=== PATIENT | female | born 1995 | race Caucasian/White ===

== ENCOUNTER 2023-08-31 18:43 | Inpatient (IN) ==
[2023-08-31 19:26] LABS: Basophils % (auto) 0.8 %; Eosinophils # (auto) 0.46 K/uL (0.00-0.50); Eosinophils % (auto) 3.7 %; Hematocrit (blood only) 43.3 % (37.0-47.0); Hemoglobin 14.3 g/dl (12.0-16.0); Immature Granulocytes # (auto) 0.05 K/uL (0.01-0.20); Immature Granulocytes % (auto) 0.4 %; Lymphocytes # (auto) 3.69 K/uL (1.20-3.40); Lymphocytes % (auto) 29.6 %; Mean Corpuscular Hemoglobin 29.7 pg (25.0-34.0); Mean Corpuscular Volume 89.8 fL (80.0-100.0); Mean Platelet Volume 9.9 fL (9.4-12.4); Monocytes % (auto) 5.6 %; Neutrophils # (auto) 7.47 K/uL (1.40-6.50); Neutrophils % (auto) 59.9 %; Platelet Count 394 K/uL (130-400); RDW Coefficient of Variation 12.2 % (11.5-14.5); RDW Standard Deviation 40.3 fL (36.4-46.3); Red Blood Count 4.82 M/uL (4.20-5.40); White Blood Count 12.47 K/ul (4.8-10.8)
[2023-08-31 19:48] LABS: Alanine Aminotransferase 22 U/L (7-52); Albumin Globulin Ratio 1.1 (0.9-2); Albumin Level 4.6 gm/dl (3.4-5.0); Alkaline Phosphatase 86 U/L (34-104); Anion Gap 8 (3-11); Aspartate Aminotransferase 20 U/L (13-39); BUN Creatinine Ratio 18.7 (10-20); Bilirubin,Total 0.3 mg/dl (0.2-1.0); Blood Urea Nitrogen 14 mg/dl (6-23); Calcium 9.8 mg/dl (8.6-10.3); Carbon Dioxide 26 mmol/L (21-32); Chloride 104 mmol/L (98-107); Est GFR (African American) 127.5 ml/min; Glucose 91 mg/dl (70-99(Fasting)); Potassium 3.9 mmol/L (3.5-5.1); Sodium 138 mmol/L (136-145); Total Protein 8.6 gm/dl (6.0-8.3)
[2023-08-31 19:54] LABS: Troponin I High Sensitivity < 2.3 pg/ml (0-14)
[2023-08-31 19:55] LABS: INR 0.9 (0.9-1.1); Partial Thromboplastin Ratio 0.9; Partial Thromboplastin Time 25 Seconds (21-31); Prothrombin Time 9.9 Seconds (9.0-12.0)
--- NOTE | 2023-08-31 20:44 | Emergency Department Note ---
Impression & Plan Right-sided chest pain, Pulmonary emboli, Pleuritic chest pain, SOB (shortness of breath) ED Provider Note NAME: DANNY SPIVEY AGE: 27 SEX: F : 1995 ARRIVES VIA: Walk-In INFORMANT: [Patient] ED PROVIDER(S): [Arley Barrera MD] CHIEF COMPLAINT: Short of breath HISTORY OF PRESENT ILLNESS: The patient is a 27-year-old female who presents to the ER with dyspnea. The patient states that she has pain on the right side of her chest. She has had pain now for 2 weeks. She feels as if she is short of breath from it. There has been no cough or congestion. No fever. No trauma to the chest wall. She has not suffered a previous DVT or PE. The patient states that she feels the pain is worse when she tries to sleep on her right side. She is trying to sleep with her arms up over her head. There have been no long trips by car plane or train. There is no family history of DVT or PE. The patient did recently start control. PMHx/PSHx/Social Hx: See Below PHYSICAL EXAM: GENERAL: Patient is in no acute distress. HEENT: No acute trauma, normocephalic atraumatic, mucous membranes moist, no nasal congestion. NECK: No stridor, no adenopathy, no meningismus, trachea is midline. LUNGS: Occasional crackles, no wheezing or respiratory distress. HEART: Without murmurs gallops or rubs, regular rate and rhythm. Chest: Nontender chest wall. ABDOMEN: Soft, nontender, no peritonitis. EXTREMITIES: No cyanosis, full range of motion of all the joints without pain or difficulty. NEUROLOGIC: Oriented x 3, no acute motor or sensory deficits, no focal weakness. SKIN: No jaundice, no diaphoresis. DIFFERENTIAL DIAGNOSIS: Bronchitis or pneumonia, musculoskeletal pain, pneumothorax, PE, among others. EMERGENCY DEPARTMENT PROCEDURES: MEDICAL DECISION MAKING: There is a mild leukocytosis, this could be consistent with infection or may be her pain. There was a normal hemoglobin and platelet count. No coagulopathy. No renal failure or significant electrolyte abnormality. No concerning liver enzyme elevation. ECG shows a normal sinus rhythm, no ischemia or dysrhythmia. Cardiac enzyme testing x 1 is not consistent with acute cardiac injury. Chest x-ray does not show mediastinal widening, pneumonia or pneumothorax. Chest CT shows multiple pulmonary emboli with some pulmonary infarcts. On exam, the patient did not have any reproducible chest pain. She was not hypoxic. She complained of pleuritic right-sided chest discomfort. Patient was found to have multiple pulmonary emboli. She will require a hospital stay and IV anticoagulation. I ordered for an IV heparin bolus and a heparin drip. I did speak with the patient about her findings, I did speak with case management, the on-call hospitalist has been consulted. Prior/Outside records/notes reviewed: None ECG per my interpretation: Indication was chest pain. The ECG shows a normal sinus rhythm with a rate of 77. There is no ST elevation, no PVCs. The QTc is 423. Continuous Cardiac Monitoring per my interpretation: An order was placed for continuous cardiac monitoring. The monitor shows a rate of 91 with normal sinus rhythm. Imaging/x-ray results per my interpretation: Chest x-ray does not show mediastinal widening, pneumonia or pneumothorax Chronic Medical/Social conditions affecting care: Care/Management discussed with: Case management, the on-call hospitalist. Level of care consideration(s): After review of the information above and other included data: --I believe the patient requires escalation of care to admission Critical Care Note: I have personally spent 44 minutes of critical care time in the direct management of this patient. This includes bedside care, interpretation of diagnostic studies, and testing, discussion with consultants, patient, and family members, and other required patient management activities. This 44 minutes is in excess of all separately billable procedures. DISPOSITION: Admission Past Med/Surg History Problem List SOB (shortness of breath) (Acute) Pleuritic chest pain (Acute) Pulmonary emboli (Acute) Right-sided chest pain (Acute) Medical History History of kidney stones Social History Smoking Status: Never smoker Preferred Language: Burkinan Feels Safe at Home: Yes Allergies Allergies Allergy/AdvReac Type Severity Reaction Status Date / Time No Known Allergies Allergy Unverified 08/31/23 19:37 Home Meds Home Medications Medication Instructions Recorded Confirmed etonogestrel 0.12 mg-ethinyl 1 vag ring vaginal UD 08/31/23 08/31/23 estradiol 0.015 mg/24 hr vaginal ring fluoxetine 20 mg capsule 20 mg PO QAM 08/31/23 08/31/23 prednisone 10 mg tablet 10 mg PO UD 08/31/23 08/31/23 quetiapine 50 mg tablet 50 mg PO HS 08/31/23 08/31/23 Results & Data (ED) Vital Signs Vital Signs - 24 hr 08/31/23 18:48 08/31/23 20:30 08/31/23 20:40 Temperature 36.5 C Temperature Source Temporal Artery Scan Pulse Rate 75 91 H Pulse Rate from SpO2 Sensor 91 H Respiratory Rate 16 15 16 Respiratory Effort / Characteristics Non-Labored Non-Labored Spontaneous Respiratory Depth Normal Normal Respiratory Pattern Regular Blood Pressure 146/94 H 134/96 Blood Pressure Mean 111 108 Pulse Oximetry 99 98 Oxygen Delivery Method Room Air Room Air Sepsis Recent Fever Within 48 Hours No Sepsis New/Unexplained Change in Mental Status No Sepsis Action Taken by Nursing No Action Required 08/31/23 20:40 08/31/23 20:40 Temperature Temperature Source Pulse Rate Pulse Rate from SpO2 Sensor Respiratory Rate Respiratory Effort / Characteristics Respiratory Depth Respiratory Pattern Blood Pressure Blood Pressure Mean Pulse Oximetry 96 96 Oxygen Delivery Method Room Air Room Air Sepsis Recent Fever Within 48 Hours Sepsis New/Unexplained Change in Mental Status Sepsis Action Taken by Care Home Medications Current Medication List: was personally reviewed by me Laboratory Data Attestation: I reviewed the patient's lab results. 08/31/23 18:50 08/31/23 18:50 Lab Results 08/31/23 Range/Units 18:50 WBC 12.47 H (4.8-10.8) K/ul RBC 4.82 (4.20-5.40) M/uL Hgb 14.3 (12.0-16.0) g/dl Hct 43.3 (37.0-47.0) % MCV 89.8 (80.0-100.0) fL MCH 29.7 (25.0-34.0) pg MCHC 33.0 (32.0-36.0) g/dL RDW Std Deviation 40.3 (36.4-46.3) fL RDW Coeff of Migue 12.2 (11.5-14.5) % Plt Count 394 (130-400) K/uL MPV 9.9 (9.4-12.4) fL Immature Gran % (Auto) 0.4 % Neut % (Auto) 59.9 % Lymph % (Auto) 29.6 % [place] % (Auto) 5.6 % Eos % (Auto) 3.7 % Baso % (Auto) 0.8 % Neut # (Auto) 7.47 H (1.40-6.50) K/uL Lymph # (Auto) 3.69 H (1.20-3.40) K/uL [place] # (Auto) 0.70 H (0.11-0.59) K/uL Eos # (Auto) 0.46 (0.00-0.50) K/uL Baso # (Auto) 0.10 (0.00-0.20) K/uL Immature Gran # (Auto) 0.05 (0.01-0.20) K/uL PT 9.9 (9.0-12.0) Seconds INR 0.9 (0.9-1.1) APTT 25 (21-31) Seconds PTT Ratio 0.9 Sodium 138 (136-145) mmol/L Potassium 3.9 (3.5-5.1) mmol/L Chloride 104 (98-107) mmol/L Carbon Dioxide 26 (21-32) mmol/L Anion Gap 8 (3-11) BUN 14 (6-23) mg/dl Creatinine 0.75 (0.6-1.2) mg/dl Est Cr Clr Drug Dosing 127.0 ml/min Est GFR ( Amer) 127.5 ml/min Est GFR (Non-Af Amer) 110.0 ml/min BUN/Creatinine Ratio 18.7 (10-20) Glucose 91 (70-99(Fasting)) mg/dl Calcium 9.8 (8.6-10.3) mg/dl Total Bilirubin 0.3 (0.2-1.0) mg/dl AST 20 (13-39) U/L ALT 22 (7-52) U/L Alkaline Phosphatase 86 (34-104) U/L Troponin I High Sens < 2.3 (0-14) pg/ml Total Protein 8.6 H (6.0-8.3) gm/dl Albumin 4.6 (3.4-5.0) gm/dl Globulin 4.0 (2.5-4.0) gm/dl Albumin/Globulin Ratio 1.1 (0.9-2) Administered Medications Discontinued Medications Ioversol (Optiray 320 125ml) 120 ml IV ONCE ONE Stop: 08/31/23 20:48 Last Admin: 08/31/23 20:48 Dose: 120 ml Documented By: GEP Imaging Data Radiologist's Impression: Chest X-Ray 08/31/23 18:50 XR chest 1V not portable CLINICAL HISTORY: Chest pain, nonspecific TECHNIQUE: Single frontal radiograph of the chest was obtained. Comparison: Comparison is made to chest radiograph 05/13/2018 FINDINGS: No lines and tubes are seen. The cardiomediastinal silhouette is normal. The lungs are clear. No evidence of pleural effusion or pneumothorax. IMPRESSION: No acute chest disease. ACT 112: Negative or not required by law. Electronically signed by: Franklin Miranda M.D. 08/31/2023 9:38 PM Chest CTA 08/31/23 20:39 CT angio chest PE protocol CLINICAL HISTORY: PE TECHNIQUE: Multidetector row helical CT of the chest was performed with angiographic protocol. Coronal and sagittal reformations were obtained. Coronal and sagittal MIPS were obtained from the axial data set and were submitted for review. Automated dose lowering techniques and/or adjustment according to patient size were utilized for this exam. CT DOSE: 740.36 mGy.cm Comparison: Comparison is made to chest radiograph 08/31/2023 FINDINGS: Lungs and pleura: Trace right pleural effusion is seen with groundglass nodules in the right lower lobe. Heart and pericardium: Heart size is normal. No pericardial effusion. No evidence of right heart strain. Vessels: There is a embolus of the right lower lobar artery and its branches as well as segmental branches of all other lobes. Mediastinum and meme: Unremarkable. Chest wall and lower neck: Unremarkable. Abdomen: Unremarkable. Bones: Unremarkable. IMPRESSION: Right lower lobar pulmonary emboli and additional emboli in segmental branches of the remaining lungs. Small peripheral pulmonary infarct is in the right lower lobe with likely reactive pleural effusion. ACT 112: Negative or not required by law. Electronically signed by: Franklin Miranda M.D. 08/31/2023 9:18 PM Discharge Plan Visit Data Chief Complaint: Shortness of Breath/Dyspnea Stated Complaint: REF BY DOC ED Provider: Feese,Arley J Discharge Problem: Right-sided chest pain, Pulmonary emboli, Pleuritic chest pain, SOB (shortness of breath) Patient Disposition: Admitted As Inpatient Condition: Fair Forms Stand Alone Forms: [facility] [employer] Prescriptions Prescriptions: No Action etonogestrel-ethinyl estradiol 0.12-0.015 mg/24 hr ring 1 vag ring VAGINAL UD prednisone 10 mg tablet 10 mg PO UD fluoxetine 20 mg capsule 20 mg PO QAM quetiapine 50 mg tablet 50 mg PO HS Referrals Referrals: Cassandra Sinclair MD [Primary Care Provider] - Discharge Problem: Pulmonary emboli Qualifiers: Pulmonary embolism type: unspecified Chronicity: acute Acute cor pulmonale presence: unspecified Qualified Code(s): I26.99 - Other pulmonary embolism without acute cor pulmonale
[2023-08-31] MEDS: OPTIRAY 320 125ml IV ONE (20:48)
--- NOTE | 2023-08-31 21:21 | CT Scan Report ---
CT angio chest PE protocol CLINICAL HISTORY: PE TECHNIQUE: Multidetector row helical CT of the chest was performed with angiographic protocol. Caceres l and sagittal reformations were obtained. Coronal and sagittal MIPS were obtained from the axial miguel a set and were submitted for review. Automated dose lowering techniques and/or adjustment according to patient size were utilized for this exam. CT DOSE: 740.36 mGy.cm Comparison: Comparison is made to chest radiograph 08/31/2023 FINDINGS: Lungs and pleura: Trace right pleural effusion is seen with groundglass nodules in the right lower lo be. Heart and pericardium: Heart size is normal. No pericardial effusion. No evidence of right heart stra in. Vessels: There is a embolus of the right lower lobar artery and its branches as well as segmental bra nches of all other lobes. Mediastinum and meme: Unremarkable. Chest wall and lower neck: Unremarkable. Abdomen: Unremarkable. Bones: Unremarkable. IMPRESSION: Right lower lobar pulmonary emboli and additional emboli in segmental branches of the remaining lungs . Small peripheral pulmonary infarct is in the right lower lobe with likely reactive pleural effusion . ACT 112: Negative or not required by law. Electronically signed by: Franklin Miranda M.D. 08/31/2023 9:18 PM
--- NOTE | 2023-08-31 21:39 | XRay Report ---
XR chest 1V not portable CLINICAL HISTORY: Chest pain, nonspecific TECHNIQUE: Single frontal radiograph of the chest was obtained. Comparison: Comparison is made to chest radiograph 05/13/2018 FINDINGS: No lines and tubes are seen. The cardiomediastinal silhouette is normal. The lungs are clear. No evid ence of pleural effusion or pneumothorax. IMPRESSION: No acute chest disease. ACT 112: Negative or not required by law. Electronically signed by: Franklin Miranda M.D. 08/31/2023 9:38 PM
[2023-08-31] MEDS: HEPARIN SOD (PORCINE) 1000 UNIT/ML IV ONE (22:24)
[2023-08-31] MEDS: HEPARIN SODIUM/DEXTROSE 25,000 UNITS/500 ML BAG IV SCH (22:25)
[2023-08-31] MEDS: Heparin IV Adult Wt-Based Standard w/ INITIAL Bolus Protocol IV STA (23:43)
--- NOTE | 2023-09-01 00:02 | History & Physical Report ---
Date of Service August 31, 2023 Assessment & Plan (1) Pulmonary emboli: Plan: 27-year-old female with past medical history significant for hepatic steatosis, history of nephrolithiasis, mood disorder, anxiety state, recurrent depression comes because of chest pain going on for last 2 weeks and has dyspnea on exertion starting today and found to have acute PE. Patient states since last 2 weeks she is having chest pains more with inhalation on the right side but today walking short distance made her short of breath which prompted her come to the hospital. Denies any fevers. No cough. She had some dizziness. No headache. Vision is okay. No runny nose or sore throat. No nausea. No abdominal pain. Normal bowel and bladder movements. Hemodynamics are okay. Patient states She had control vaginal ring placed about 3 months ago. No history of blood clots in the past. No family history of blood clots as per patient. Denies smoking. Denies leg swelling Multiple pulmonary emboli right lower lobar pulm emboli and additional emboli in subsegmental branch of the remaining lungs with 2 peripheral pulmonary infarcts in the right lower lobe and likely reactive pleural effusion on the CAT scan possible cause control vaginal ring on IV heparin will follow lower EXTR Dopplers and echo hypercoagulable workup as outpatient close monitor history of mood disorder anxiety recurrent depression continue home meds DVT prophylaxis IV heparin disposition med/telemetry full code History of Present Illness Chief Complaint: acute PE Primary Care Provider: Cassandra Sinclair MD 27-year-old female with past medical history significant for hepatic steatosis, history of nephrolithiasis, mood disorder, anxiety state, recurrent depression comes because of chest pain going on for last 2 weeks and has dyspnea on exertion starting today and found to have acute PE. Patient states since last 2 weeks she is having chest pains more with inhalation on the right side but today walking short distance made her short of breath which prompted her come to the hospital. Denies any fevers. No cough. She had some dizziness. No headache. Vision is okay. No runny nose or sore throat. No nausea. No abdominal pain. Normal bowel and bladder movements. Hemodynamics are okay. Patient states She had control vaginal ring placed about 3 months ago. No history of blood clots in the past. No family history of blood clots as per patient. Denies smoking. Denies leg swelling past medical history. As mentioned above past surgical history. Carpal tunnel surgery. Dental surgery. Social history.No smoking. No alcohol use. No drug use. family history. Mother has thyroid disorder. Maternal grandmother had lung cancer. Dementia. Allergies Allergy/AdvReac Type Severity Reaction Status Date / Time No Known Allergies Allergy Unverified 08/31/23 19:37 Home Medications Medication Instructions Recorded Confirmed Type etonogestrel 0.12 mg-ethinyl 1 vag ring vaginal UD 08/31/23 08/31/23 History estradiol 0.015 mg/24 hr vaginal ring fluoxetine 20 mg capsule 20 mg PO QAM 08/31/23 08/31/23 History prednisone 10 mg tablet 10 mg PO UD 08/31/23 08/31/23 History quetiapine 50 mg tablet 50 mg PO HS 08/31/23 08/31/23 History Past Med/Surg History Problem List SOB (shortness of breath) (Acute) Pleuritic chest pain (Acute) Pulmonary emboli (Acute) Right-sided chest pain (Acute) Medical History History of kidney stones Social History Smoking Status: Never smoker Hx Alcohol Use: Yes Hx Substance Use: No Preferred Language: Georgian Communication Ability: Effective Twist Tester Required: No Beliefs That Will Affect Care: None Current Living Situation: Alone Feels Safe at Home: Yes Safety Concerns: Feels Safe At This Time Review of Systems Review of Systems: All systems reviewed & are unremarkable except as noted in HPI & below Physical Exam Physical Exam: General- Not in distress. Head- atraumatic Eyes- PERRL. ENT- oropharynx clear Neck- supple, no JVD. Lungs- clear to auscultation no wheezing or crackles. Heart- regular rate and rhythm; no murmur, no gallop. Abdomen- normal bowel sounds, soft, nontender, no distension. Extremities- no pretibial edema, no erythema seen Neuro- alert, oriented PERRL, no facial palsy; no dysarthria; Results & Data Results & Data Vital Signs (Past 12 Hours) Vital Signs Temp Pulse Resp BP Pulse Ox O2 Del Method 08/31/23 22:00 16 96 Room Air 08/31/23 20:40 96 Room Air 08/31/23 20:40 96 Room Air 08/31/23 20:40 16 08/31/23 20:30 91 H 15 134/96 98 Room Air 08/31/23 20:25 87 08/31/23 18:48 36.5 C 75 16 146/94 H 99 Room Air Diagnostic Findings Laboratory Results WBC 12.47 K/ul (4.8-10.8) H 08/31/23 18:50 RBC 4.82 M/uL (4.20-5.40) 08/31/23 18:50 Hgb 14.3 g/dl (12.0-16.0) 08/31/23 18:50 Hct 43.3 % (37.0-47.0) 08/31/23 18:50 MCV 89.8 fL (80.0-100.0) 08/31/23 18:50 MCH 29.7 pg (25.0-34.0) 08/31/23 18:50 MCHC 33.0 g/dL (32.0-36.0) 08/31/23 18:50 RDW Std Deviation 40.3 fL (36.4-46.3) 08/31/23 18:50 RDW Coeff of Migue 12.2 % (11.5-14.5) 08/31/23 18:50 Plt Count 394 K/uL (130-400) 08/31/23 18:50 MPV 9.9 fL (9.4-12.4) 08/31/23 18:50 Immature Gran % (Auto) 0.4 % 08/31/23 18:50 Neut % (Auto) 59.9 % 08/31/23 18:50 Lymph % (Auto) 29.6 % 08/31/23 18:50 [place] % (Auto) 5.6 % 08/31/23 18:50 Eos % (Auto) 3.7 % 08/31/23 18:50 Baso % (Auto) 0.8 % 08/31/23 18:50 Neut # (Auto) 7.47 K/uL (1.40-6.50) H 08/31/23 18:50 Lymph # (Auto) 3.69 K/uL (1.20-3.40) H 08/31/23 18:50 [place] # (Auto) 0.70 K/uL (0.11-0.59) H 08/31/23 18:50 Eos # (Auto) 0.46 K/uL (0.00-0.50) 08/31/23 18:50 Baso # (Auto) 0.10 K/uL (0.00-0.20) 08/31/23 18:50 Immature Gran # (Auto) 0.05 K/uL (0.01-0.20) 08/31/23 18:50 PT 9.9 Seconds (9.0-12.0) 08/31/23 18:50 INR 0.9 (0.9-1.1) 08/31/23 18:50 APTT 25 Seconds (21-31) 08/31/23 18:50 PTT Ratio 0.9 08/31/23 18:50 Sodium 138 mmol/L (136-145) 08/31/23 18:50 Potassium 3.9 mmol/L (3.5-5.1) 08/31/23 18:50 Chloride 104 mmol/L (98-107) 08/31/23 18:50 Carbon Dioxide 26 mmol/L (21-32) 08/31/23 18:50 Anion Gap 8 (3-11) 08/31/23 18:50 BUN 14 mg/dl (6-23) 08/31/23 18:50 Creatinine 0.75 mg/dl (0.6-1.2) 08/31/23 18:50 Est Cr Clr Drug Dosing 127.0 ml/min 08/31/23 18:50 Est GFR ( Amer) 127.5 ml/min 08/31/23 18:50 Est GFR (Non-Af Amer) 110.0 ml/min 08/31/23 18:50 BUN/Creatinine Ratio 18.7 (10-20) 08/31/23 18:50 Glucose 91 mg/dl (70-99(Fasting)) 08/31/23 18:50 Calcium 9.8 mg/dl (8.6-10.3) 08/31/23 18:50 Total Bilirubin 0.3 mg/dl (0.2-1.0) 08/31/23 18:50 AST 20 U/L (13-39) 08/31/23 18:50 ALT 22 U/L (7-52) 08/31/23 18:50 Alkaline Phosphatase 86 U/L (34-104) 08/31/23 18:50 Troponin I High Sens < 2.3 pg/ml (0-14) 08/31/23 18:50 Total Protein 8.6 gm/dl (6.0-8.3) H 08/31/23 18:50 Albumin 4.6 gm/dl (3.4-5.0) 08/31/23 18:50 Globulin 4.0 gm/dl (2.5-4.0) 08/31/23 18:50 Albumin/Globulin Ratio 1.1 (0.9-2) 08/31/23 18:50 Impressions Chest X-Ray 08/31/23 18:50 XR chest 1V not portable CLINICAL HISTORY: Chest pain, nonspecific TECHNIQUE: Single frontal radiograph of the chest was obtained. Comparison: Comparison is made to chest radiograph 05/13/2018 FINDINGS: No lines and tubes are seen. The cardiomediastinal silhouette is normal. The lungs are clear. No evidence of pleural effusion or pneumothorax. IMPRESSION: No acute chest disease. ACT 112: Negative or not required by law. Electronically signed by: Franklin Miranda M.D. 08/31/2023 9:38 PM Chest CTA 08/31/23 20:39 CT angio chest PE protocol CLINICAL HISTORY: PE TECHNIQUE: Multidetector row helical CT of the chest was performed with angiographic protocol. Coronal and sagittal reformations were obtained. Coronal and sagittal MIPS were obtained from the axial data set and were submitted for review. Automated dose lowering techniques and/or adjustment according to patient size were utilized for this exam. CT DOSE: 740.36 mGy.cm Comparison: Comparison is made to chest radiograph 08/31/2023 FINDINGS: Lungs and pleura: Trace right pleural effusion is seen with groundglass nodules in the right lower lobe. Heart and pericardium: Heart size is normal. No pericardial effusion. No evidence of right heart strain. Vessels: There is a embolus of the right lower lobar artery and its branches as well as segmental branches of all other lobes. Mediastinum and meme: Unremarkable. Chest wall and lower neck: Unremarkable. Abdomen: Unremarkable. Bones: Unremarkable. IMPRESSION: Right lower lobar pulmonary emboli and additional emboli in segmental branches of the remaining lungs. Small peripheral pulmonary infarct is in the right lower lobe with likely reactive pleural effusion. ACT 112: Negative or not required by law. Electronically signed by: Franklin Miranda M.D. 08/31/2023 9:18 PM ECG Additional Comments: ECG. Normal sinus rhythm with a rate of 77. No acute ST changes seen. Code Status & VTE Plan VTE Prophylaxis Plan VTE Prophylaxis will be ordered: Yes (1) Pulmonary emboli Acute cor pulmonale presence: unspecified Chronicity: acute Pulmonary embolism type: unspecified Qualified Code(s): I26.99 - Other pulmonary embolism without acute cor pulmonale
[2023-09-01] MEDS: traMADol HCL 50 MG TABLET PO PRN (00:45)
[2023-09-01] MEDS ORDERED: POLYETHYLENE (MIRALAX) 17 GM PACK PO PRN (01:16)
[2023-09-01] MEDS ORDERED: ACETAMINOPHEN 325 MG TAB PO PRN (01:16)
[2023-09-01] MEDS: HYDROmorphone INJ 0.5 MG/0.5 ML SYR IV PRN (02:58)
[2023-09-01] MEDS: SODIUM CHLORIDE 0.9% 1,000 ML IV SCH (03:01)
[2023-09-01 04:42] LABS: Basophils # (auto) 0.08 K/uL (0.00-0.20); Basophils % (auto) 0.6 %; Eosinophils # (auto) 0.43 K/uL (0.00-0.50); Eosinophils % (auto) 3.3 %; Hematocrit (blood only) 39.6 % (37.0-47.0); Hemoglobin 13.3 g/dl (12.0-16.0); Immature Granulocytes # (auto) 0.09 K/uL (0.01-0.20); Immature Granulocytes % (auto) 0.7 %; Lymphocytes # (auto) 4.44 K/uL (1.20-3.40); Lymphocytes % (auto) 34.5 %; Mean Corpuscular Hemoglobin 29.8 pg (25.0-34.0); Mean Corpuscular Hgb Conc 33.6 g/dL (32.0-36.0); Mean Corpuscular Volume 88.6 fL (80.0-100.0); Mean Platelet Volume 9.5 fL (9.4-12.4); Monocytes # (auto) 0.81 K/uL (0.11-0.59); Monocytes % (auto) 6.3 %; Neutrophils # (auto) 7.02 K/uL (1.40-6.50); Neutrophils % (auto) 54.6 %; Platelet Count 342 K/uL (130-400); RDW Coefficient of Variation 12.2 % (11.5-14.5); RDW Standard Deviation 39.8 fL (36.4-46.3); Red Blood Count 4.47 M/uL (4.20-5.40); White Blood Count 12.87 K/ul (4.8-10.8)
[2023-09-01 04:55] LABS: BUN Creatinine Ratio 16.9 (10-20); Creatinine Clr Calc Pharmacy 146.5 ml/min; Est GFR (Non-African American) 122.5 ml/min; Magnesium 2.2 mg/dl (1.7-2.4); Potassium 3.4 mmol/L (3.5-5.1)
[2023-09-01 05:05] LABS: ANTI-Xa, UFH(UnfractionatedHep 0.22 IU/ml (0.3-0.7)
--- NOTE | 2023-09-01 06:31 | Ultrasound Report ---
ULTRASOUND BILATERAL LOWER EXTREMITY VENOUS CLINICAL HISTORY: Pulmonary embolus. COMPARISON STUDY: No priors. TECHNIQUE: Real-time, grayscale, and color Doppler sonography of the deep veins of the right and left lower extremity was performed from the inguinal crease to the calf. Compression and augmentation wer e utilized. FINDINGS: There is no sonographic evidence of deep venous thrombosis identified in the right or left lower extremity. The common femoral, superficial femoral, and popliteal veins are patent and normally compressible bilaterally. The greater saphenous vein and the profunda femoris vein at the junction w ith the common femoral vein are clear in both legs. The visualized calf veins are patent bilaterally. IMPRESSION: There is no sonographic evidence of deep venous thrombosis identified in the right or lef t lower extremity. ACT 112: Negative or not required by law. Electronically signed by: Arley Galeana M.D. 09/01/2023 6:29 AM
--- NOTE | 2023-09-01 07:14 | Electrocardiogram Report ---
Test Reason : Blood Pressure : / mmHG Vent. Rate : 077 BPM Atrial Rate : 077 BPM P-R Int : 118 ms QRS Dur : 088 ms QT Int : 374 ms P-R-T Axes : 009 019 021 degrees QTc Int : 423 ms Normal sinus rhythm Normal ECG No previous ECGs available Confirmed by Alberto Reddy ([id number]) on 09/01/2023 7:14:15 AM Referred By: Emory Lindsay Confirmed By:Braxton Reddy
[2023-09-01] MEDS: FLUoxetine HCL 20 MG CAP PO SCH (08:18)
[2023-09-01] MEDS: POTASSIUM CHLORIDE CRTAB 20 MEQ TABCR PO STA (09:34)
[2023-09-01 11:39] LABS: ANTI-Xa, UFH(UnfractionatedHep 0.21 IU/ml (0.3-0.7)
[2023-09-01] MEDS: ONDANSETRON INJ 2 MG/ML 2 ML VIAL ONE (13:24)
[2023-09-01] MEDS: ONDANSETRON INJ 2 MG/ML 2 ML VIAL IV SCH (14:00)
--- NOTE | 2023-09-01 14:35 | Hospitalist Progress Note ---
Date of Service September 01, 2023 Assessment & Plan (1) Pulmonary emboli: Plan: 27-year-old female with past medical history significant for hepatic steatosis, history of nephrolithiasis, mood disorder, anxiety state, recurrent depression comes because of chest pain going on for last 2 weeks and has dyspnea on exertion starting today and found to have acute PE. Patient states since last 2 weeks she is having chest pains more with inhalation on the right side but today walking short distance made her short of breath which prompted her come to the hospital. Denies any fevers. No cough. She had some dizziness. No headache. Vision is okay. No runny nose or sore throat. No nausea. No abdominal pain. Normal bowel and bladder movements. Hemodynamics are okay. Patient states She had control vaginal ring placed about 3 months ago. No history of blood clots in the past. No family history of blood clots as per patient. Denies smoking. Denies leg swelling Multiple pulmonary emboli Right lower lobar pulm emboli and additional emboli in subsegmental branch of the remaining lungs with 2 peripheral pulmonary infarcts in the right lower lobe and likely reactive pleural effusion on the CAT scan Possible cause control vaginal ring On IV heparin Ultrasound of the legs have been negative for any DVTs Hypercoagulable workup as outpatient Clinically little better Discussed about oral anticoagulation Prefers to have Eliquis versus Xarelto Will start the medication from tomorrow Awaiting echo Advised to discontinue current contraceptive method History of mood disorder anxiety recurrent depression continue home meds DVT prophylaxis IV heparin disposition med/telemetry full code Admission and Anticipated Discharge Date Admission Date: August 31, 2023 Subjective 09/01/2023 The patient was seen and examined in emergency room in presence of the mother Has been complaining of chest pain with shortness of breath for the last 2 weeks No cough and/or hemoptysis No calf swelling or calf pain Review of Systems Review of Systems: All systems reviewed and are unremarkable except as noted below Physical Exam Physical Exam: Lying in bed comfortably Constitutional: well developed, well nourished and + ill appearing Eyes: PERRL, conjunctivae normal, anicteric sclerae ENMT: external ear and nose normal, oropharynx normal Neck: trachea midline, no thyromegaly Respiratory: no respiratory distress Auscultation: + crackles; + lungs not clear to auscultation Cardiovascular: Rate/Rhythm: regular rate and regular rhythm; not tachycardic Heart Sounds: normal S1 and normal S2; no murmur Extremities: no edema Gastrointestinal (Abdomen): Inspection/Auscultation: normal bowel sounds; abdomen not distended Percussion/Palpation: abdomen soft; abdomen nontender Musculoskeletal: No acute arthritis involving any of the joints Neurologic: normal touch/pain/proprioception and moves all extremities; no focal motor deficits Psychiatric: A+Ox3, euthymic affect Lymphatic: no cervical or axillary lymphadenopathy Results & Data Results & Data Vital Signs (Past 12 Hours) Vital Signs Temp Pulse Pulse Resp BP BP Pulse Ox 09/01/23 14:11 64 18 124/94 99 09/01/23 14:00 75 22 95 09/01/23 13:39 85 25 H 95 09/01/23 13:00 87 25 H 95 09/01/23 13:00 129/90 09/01/23 12:33 68 22 95 09/01/23 12:15 90 21 96 09/01/23 11:33 85 28 H 124/77 96 09/01/23 11:09 92 H 25 H 88 L 09/01/23 10:43 74 18 136/88 94 09/01/23 09:30 137/89 09/01/23 07:11 66 09/01/23 07:09 63 18 125/75 95 09/01/23 06:00 71 16 124/79 95 09/01/23 05:00 82 16 126/73 95 09/01/23 04:30 78 25 H 96 09/01/23 03:08 36.7 C 83 18 137/99 99 09/01/23 03:00 91 H 20 137/99 98 O2 Del Method 09/01/23 14:11 Room Air 09/01/23 14:00 09/01/23 13:39 09/01/23 13:00 09/01/23 13:00 09/01/23 12:33 09/01/23 12:15 09/01/23 11:33 09/01/23 11:09 09/01/23 10:43 Room Air 09/01/23 09:30 09/01/23 07:11 09/01/23 07:09 Room Air 09/01/23 06:00 Room Air 09/01/23 05:00 Room Air 09/01/23 04:30 09/01/23 03:08 Room Air 09/01/23 03:00 Laboratory Results Short CBC 08/31/23 09/01/23 Range/Units 18:50 04:25 WBC 12.47 H 12.87 H (4.8-10.8) K/ul Hgb 14.3 13.3 (12.0-16.0) g/dl Hct 43.3 39.6 (37.0-47.0) % Plt Count 394 342 (130-400) K/uL BMP 08/31/23 09/01/23 18:50 04:25 Sodium 138 136 Potassium 3.9 3.4 L Chloride 104 104 Carbon Dioxide 26 25 BUN 14 11 Creatinine 0.75 0.65 Glucose 91 99 Calcium 9.8 9.0 Liver Function 08/31/23 Range/Units 18:50 Total Bilirubin 0.3 (0.2-1.0) mg/dl AST 20 (13-39) U/L ALT 22 (7-52) U/L Alkaline Phosphatase 86 (34-104) U/L Albumin 4.6 (3.4-5.0) gm/dl Medications Administered Current Inpatient Medications Acetaminophen (Acetaminophen 325 Mg Tab) 650 mg PO Q6H PRN PRN Reason: Pain or Fever Stop: 10/01/23 01:15 Fluoxetine HCl (Fluoxetine Hcl 20 Mg Cap) [facility] Stop: 10/01/23 08:59 Last Admin: 09/01/23 08:18 Dose: 20 mg Hydromorphone HCl (Hydromorphone Inj 0.5 Mg/0.5 Ml Syr) 0.5 mg IV Q4H PRN PRN Reason: Severe Pain (Scale 7, 8, 9,10) Stop: 09/15/23 02:53 Last Admin: 09/01/23 12:06 Dose: 0.5 mg Heparin Sodium/Dextrose (Heparin Sodium/Dextrose) 25,000 units in 500 mls @ 27 mls/hr IV .[id number] [facility]; Protocol Stop: 09/30/23 22:14 Last Titration: 09/01/23 12:13 Dose: 1,350 units/hr, 27 mls/hr Ondansetron HCl (Ondansetron Inj 2 Mg/Ml 2 Ml Vial) 4 mg IV Q6H [facility] Stop: 10/01/23 13:44 Last Admin: 09/01/23 14:00 Dose: Not Given Polyethylene Glycol (Polyethylene (Miralax) 17 Gm Pack) 17 gm PO DAILY PRN PRN Reason: Constipation Stop: 10/01/23 01:15 Quetiapine Fumarate (Quetiapine Fumarate 25 Mg Tablet) 50 mg PO HS LUZ MARIA Stop: 10/01/23 20:59 Tramadol HCl (Tramadol Hcl 50 Mg Tablet) 50 mg PO Q6H PRN PRN Reason: Mod-Sev Pain (Scale 4-10) Stop: 10/01/23 00:29 Last Admin: 09/01/23 10:39 Dose: 50 mg (1) Pulmonary emboli Acute cor pulmonale presence: unspecified Chronicity: acute Pulmonary embolism type: unspecified Qualified Code(s): I26.99 - Other pulmonary embolism without acute cor pulmonale
--- OUTSIDE RECORDS SUMMARY | 2023-09-01 15:36 | External Medical Summary ---
Author Name Unknown Address Unknown Organization [id number]:LABORATORY [facility] - [address] [facility] [address] Laboratory Report Ordering Provider Test Date Status SHIRA ENG 06/25/2023 07:46:49 Final Observation Date Value Abnormality Reference (Units ) Status SYNC LEUKOCYTES IN BLOOD BY AUTOMATED COUNT 06/25/2023 07:46:49 11.41 Above high normal 4.00-10.80 (K/uL) Final Segs 06/25/2023 07:46:49 50.9 40.0-75.0 (%) Final Lymphs % 06/25/2023 07:46:49 37.8 18.0-42.0 (%) Final Monos 06/25/2023 07:46:49 4.6 1.0-11.0 (%) Final Eosinophils 06/25/2023 07:46:49 5.5 0.0-6.0 (%) Final Basos 06/25/2023 07:46:49 0.9 0.0-2.0 (%) Final Immature Granulocyte, Percent 06/25/2023 07:46:49 0.3 0.0-2.0 (%) Final Absolute Segs 06/25/2023 07:46:49 5.81 1.80-7.70 (K/uL) Final Lymphs, absolute 06/25/2023 07:46:49 4.31 1.00-4.80 (K/ul) Final Monos, Abs 06/25/2023 07:46:49 0.53 0.00-1.10 (K/uL) Final Eos, Abs 06/25/2023 07:46:49 0.63 0.00-0.70 (K/uL) Final Basos, Abs 06/25/2023 07:46:49 0.10 0.00-0.20 (K/uL) Final Immature Granulocytes, Number 06/25/2023 07:46:49 0.03 0.00-0.20 (K/uL) Final Performing Location [facility]ORY [facility] - [address] [facility] [address]
--- OUTSIDE RECORDS SUMMARY | 2023-09-01 15:36 | External Medical Summary ---
Author Name Unknown Address Unknown Organization [id number]:LABORATORY [facility] [place] - [address] [facility] [address] Laboratory Report Ordering Provider Test Date Status SHIRA ENG 06/25/2023 07:46:49 Final Observation Date Value Abnormality Reference (Units ) Status HbA1C 06/25/2023 07:46:49 5.0 4.0-5.6 (% ) Final The use of HbA1c to monitor glycemic status is based on normal hemoglobin and HbA composition. This test should not be used in patients with abnormal hemoglobin that affects the half life of the red blood cell or the in vivo glycation rates. Glucose, estimated average 06/25/2023 07:46:49 97 <126 (mg/dL) Final Performing Location [facility] - [address] [facility] [address]
--- OUTSIDE RECORDS SUMMARY | 2023-09-01 15:36 | External Medical Summary | Summary of Care ---
Author Name Unknown Organization [facility] Address [address] [place] [address] Phone [phone] Care Team Providers Care Tin Roofer Name Role Phone Cassandra Sinclair MD Primary Care Provider Reason for Visit * Reason Comments Weight Management The pt stated she wo uld like to discuss weight management/weight loss * Evaluate & Treat - Unlimited Visits (Within 10 days (routine)) - Authorized Specialty Diagnoses / Procedures Referred By Contact Referred To Contact GI NUTRITION/IM / Gastroenterology Diagnoses Mood disorder (HCC) Monie Pierson CRNP [address] [place] [address] Referral ID Status Reason Start Date Expiration Date Visits Requested Visits Authorized [id number] Authorized Specialty Services Required 06/18/[phone] Encounter Details Date Type Department Care Team (Latest Contact Info) Description 07/06/2023 8:40 AM EDT Nutrition Services Nutrition & Weight Management, [facility] [address] [address] Shonna Siu RDN [address] [address] Mood disorder (HCC)*; Class 1 obesity due to excess calories without serious comorbidity with body mass index (BMI) of 33.0 to 33.9 in adult Allergies No known active allergiesdocumented as of this encounter (statuses as of 07/06/2023) Medications Medication Sig Dispensed Refills Start Date End Date Status Tamsulosin HCl 0.4 MG Oral Capsule (Flomax) TAKE 1 CAPSULE IN THE MORNING 90 Capsule 3 11/30/2022 Active Etonogestrel-Ethinyl Estradiol 0.12-0.015 MG/24HR Vaginal Ring (NuvaRing)Indications: Encounter for initial prescription of vaginal ring hormonal contraceptive Put 1 ring in vagina. Leave in for 3 weeks. Remove for one week. Then start over with new ring. 1 Each 12 05/18/2023 Active FLUoxetine HCl 20 MG Oral Capsule (PROzac) Take 1 Capsule by mouth in the morning. 90 Capsule 1 06/18/2023 Active QUEtiapine Fumarate 50 MG Oral Tablet (SEROquel) Take 1 Tablet by mouth at bedtime. 90 Tablet 1 06/18/2023 Active documented as of this encounter (statuses as of 07/06/2023) Active Problems Problem Noted Date Diagnosed Date Moderate episode of recurrent major depressive d isorder 05/18/2023 Ureteral stone 08/29/2022 Recurrent major depressive disorder 12/30/2020 Anxiety state 05/30/2019 Mood disorder 05/30/2019 Hepatic steatosis 05/15/2018 Overview: On CT from 05/13/18- normal liver function testing (05/13/18) Nephrolithiasis 05/15/2018 Overview: Right sided, seen on CT scan documented as of this encounter (statuses as of 07/06/2023) Resolved Problems Problem Noted Date Diagnosed Date Resolved Date Chlamydia infection 01/16/2022 02/01/20 23 Food insecurity 01/31/2021 02/09/2022 Overview: Per [facility] Protocol HEATHER (generalized anxiety disorder) 07/31/2018 05/30/2019 Moderate episode of recurren t major depressive disorder 07/31/2018 05/30/2019 Deliberate self-cutting 01/26/2017 05/0 10/2018 documented as of this encounter (statuses as of 07/06/2023) Immunizations Name Administration Dates Next Due COVID-19 mRNA, LNP-s, No Pre serve, 2-Dose Series (Pfizer) 12/30/2020,12/09/2020 DTaP Dipth/Tet/Acell Pertussis (Infanrix), Peds 06/03/2001,01/08/1998,04/07/1997,1996,1996 HPV Vaccine, 9-Valent 09/07/2017,05/02/2017,09/2016 Hepatitis B, 0-19 yrs 07/07/1997,1996,10/1996 IPV - Polio Virus Vaccine (Inact) 2001,04/07/1997,02/03/1997,1996 MMR - Measles/Mumps/Rubella Vaccine 06/03/2001,0 10/06/1997 Seasonal Influenza Virus Vac cine, Unspecified Formulation 12/22/2020,12/18/2019,01/16/2018 Seasonal Influenza, PF, 6 M & above, IM , (FluLaval or Fluzone) 02/07/2023,01/16/2022 Seasonal Influenza, Quad, Na anuel (Flumist) 12/22/2020 Seasonal Influenza, Split, I IV3, With Preserve, Inj 01/02/2017 TDAP (age 10 and older)(Boostrix) 12/01/2016 Varicella Vaccine (Chicken Pox) 09/24/2008,10/06 documented as of this encounter Social History Tobacco Use Types Packs/Day Years Used Date Smoking Tobacco: Never Smokeless Tobacco: Never Alcohol Use Standard Drinks/Week Comments No 0 (1 standard drink = 0.6 oz pur e alcohol) PHQ-2 Answer Date Recorded PHQ Adult Total Score 2 05/18/2023 Hunger Vital Sign Answer Date Recorded Within the past 12 months, y ou worried that your food would run out before you got the money to buy more. Never true 02/13/20 23 Within the past 12 months, t he food you bought just didn't last and you didn't have money to get more. Never true 02/12/2023 Sex and Gender Information Value Date Recorded Sex Assigned at Female 07/31/2018 4:12 PM EDT Gender Identity Female 07/31/2018 4:12 PM EDT Sexual Orientation Straight 07/31/2018 4: 12 PM EDT Job Start Date Occupation Industry Not on file Not on file Not on file documented as of this encounter Last Filed Vital Signs Vital Sign Reading Time Taken Comments Blood Pressure 114/82 07/06/2023 8:39 AM EDT Pulse 96 07/06/2023 8:39 AM EDT Temperature 36.6 C (97.9 F) 07/06/2023 8:39 AM ED T Respiratory Rate - - Oxygen Saturation 98% 07/06/2023 8:39 AM EDT Inhaled Oxygen Concentration - - Weight 90.4 kg (199 lb 6.4 oz) 07/06/2023 8:39 A M EDT Height - - Body Mass Index 33.18 01/31/2023 8:03 AM EST documented in this encounter Progress Notes * Shonna Siu RDN - 07/06/2023 8:40 AM EDT NUTRITION & WEIGHT MANAGEMENT CONSULT NOTE [employer] Name: Lashaun Guzman Location: NUTRITION & WEIGHT MANAGEMENT, [facility] Date: 07/06/2023 Time: 7:58 AM Patient was identified at visit by name and date. Patient was seen [id number] in the clinic. NUTRITION ASSESSMENT Referring Provider: Cassandra Sinclair MD SUBJECTIVE: 27 year old female with fatty liver, depression/anxiety who has been following in clinic since June 2022 and weighed 199 lbs at that time. 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 Lives alone. Pt does not like to cook. PRIOR NUTRITION COUNSELING: No prior counseling CHALLENGES/SUCCESS TO PREVIOUS WEIGHT LOSS ATTEMPTS: SUPPLEMENTS: None PERTINENT MEDICATIONS: Quetiapine FOOD ALLERGY/INTOLERANCE ISSUES: No 07/06/23 -Initial RD visit. 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, can eat at mom's house to have dinner, will have spaghetti and take home leftovers Snacks: Drinks: [employer] coffee Franca iced latte, water 22 oz x1-1.5 times a day Alcohol: Can have 2-4 drinks a week, michelob ultra or mixed drinks Restaurant meals: several times a week DIET RECALL INDICATES: Excess intake of sweetened beverages Poor meal distribution Frequent restaurant meals Inadequate fiber intake Inadequate fruit and vegetable intake Inadequate fluid intake Inadequate protein intake PHYSICAL ACTIVITY: ANTHROPOMETRICS: Height: 65" Initial weight: 199 lbs UBW: ~185 lbs Current weight: 199 lbs Weight changes: Wt Readings from Last 10 Encounters: 07/06/23 90.4 kg (199 lb 6.4 oz) 05/18/23 92.1 kg (203 lb) 02/07/23 87.7 kg (193 lb 6.4 oz) 01/31/23 87 kg (191 lb 12.8 oz) 12/13/22 87.3 kg (192 lb 8 oz) 08/23/22 86.2 kg (190 lb) 07/19/22 87.3 kg (192 lb 6.4 oz) 01/16/22 84.3 kg (185 lb 12.8 oz) 01/16/22 85.4 kg (188 lb 3.2 oz) 12/30/21 85.7 kg (189 lb) MNT: Calorie Controlled Diet, Low Fat Diet, High Fiber Diet, Good Nutrition, Nutrient Dense Diet, 60-80 grams Protein Patient is interested in the following treatment options for obesity: medical management. LABS:Pertinent lab studies have been reviewed. Latest Reference Range & Units 06/25/23 07:46 Triglycerides <=174 mg/dL 183 (H) Cholesterol <200 mg/dL 227 (H) Non-HDL Cholesterol <=159 mg/dL 164 (H) HDL Cholesterol >49 mg/dL 63 LDL Cholesterol <=129 mg/dL 127 Latest Reference Range & Units 05/18/23 16:18 AST 10 - 35 U/L 25 ALT 10 - 35 U/L 43 (H) Latest Reference Range & Units 06/25/23 07:46 Hemoglobin A1C 4.0 - 5.6 % 5.0 NUTRITION PRESCRIPTION: Sonia Wiley 1644 x 1.2 activity factor = 1972 Kcals --> 1500 Kcals for weight loss Adjusted [place] Body Weight: 144 lbs/ 65 kg Protein: 1.0-1.2 gm protein/AIBW kg (65 kg) = 65-78 gm protein/day Fluid: 25-30 mL/AIBW kg (65 kg) = 9327-2568 mL/day, 55-66 oz KNOWLEDGE ASSESSMENT: limited knowledge BARRIERS TO LEARNING: None SPECIAL EDUCATION NEEDS: None NUTRITION DIAGNOSIS: Overweight/obesity related to excessive energy intake and physical inactivity as evidenced by BMI of 33.18 kg/m, Class I Obesity. NUTRITION INTERVENTION INSTRUCTED PT ON THESE NUTRITION HANDOUTS: New pt Folder, On the Go Protein Snacks, how to Increasefruits and veggies PATIENT GOALS: -No meal skipping. -Protein: have at least 60 g a day. Have 3 palm sized portions of protein at each meal (20 g) -Increase fruits and vegetables: aim for 4-6 full cup servings daily. Start with having at least 1 c of fruit and/or vegetables at each meal. Make sure half of your plate is filled with fruits/vegetables. -Incorporate foods higher in omega-3 fatty acids like salmon, walnuts, albacore tuna, dark leafy greens -Use a smaller plate when eating to help control portion sizes. -Limit/avoid sugar sweetened beverages. -Allow more indulgent/higher calorie foods and beverages on occasion. -Be as active as possible. Aim for 30 minutes of intentional activity 4-6 days a week. EXPECTED OUTCOMES: Demonstrated interest in learning. Expect compliance with diet recommendations. PLAN: 2-3 m 40 min visit Shonna Siu RDN documented in this encounter Nursing Notes * Chris Chino LPN - 07/06/2023 8:41 AM EDT Chief Complaint Patient presents with Weight Management The pt stated she would like to discuss weight management/weight loss Neck 13.5 inches Waist 43.5inches documented in this encounter Plan of Treatment Upcoming Encounters Date Type Department Care Team (Late st Contact Info) Description 08/13/2023 2:30 PM EDT Office Visit Psychiatry, [facility] [address] [address] Pierson, BENNIE Amezquita [address] [address] 09/05/2023 12:00 PM EDT Office Visit Family Practice [facility] [address] [address] Cassandra Sinclair MD [address] [place] [address] 09/26/2023 8:40 AM EDT Nutrition Services Nutrition & Weight Management, [facility] [address] [address] Shonan Siu RDN [address] [place] [address] 06/25/2024 1:00 PM EDT Office Visit Gynecology/Obstetrics [facility] [address] [address] Antonella Brady CRNP [address] [place] [address] Scheduled Referrals Name Type Priority Associated Diagnoses Orde r Schedule GI NUTRITION REFERRAL OP Referral Within 10 days (routine) Mood disorder (HCC) Ordered: 06/18/2023 Health Maintenance Due Date Last Done Comments Pap Smear 08/20/2023 08/19/2020, 03/15/2018 DTaP,Tdap,and Td Vaccines (7 - Td or Tdap) 12/01/2026 12/01/2016, 06/03/2001, 01/08/1998, Additional history exists Hepatitis B Completed 07/07/1997, 10/1996, 1996 GARDASIL-HPV IMMUNIZATION SERIES Completed 09/07/2017, 05/02/2017, 03/01/2017 COVID-19 Vaccine Discontinued 12/30/2020, 12/09/2020 Influenza Vaccine (FLU shot) Completed 02/07/2023, 01/16/2022, 12/22/2020, Additional history exists Gonorrhea / Chlamydia Screen Discontinued 05/18/2023, 12/13/2022, 02/08/2022, Additional history exists MENINGOCOCCAL (MENACTRA/MENVEO) Aged Out No longer eligible based on patient's age to complete this topic Pneumococcal Vaccine: Pediatrics (0 to 5 Years) and At-Risk Patients (6 to 64 Years) Aged Out No longer eligible based on patient's age to complete this topic documented as of this encounter Medical Devices Not on filedocumented as of this encounter Visit Diagnoses Diagnosis Mood disorder (HCC)- Primary Unspecified episodic mood disorder Class 1 obesity due to excess calories without serious comorbidity with body mass index (BMI) of 33.0 to 33.9 in adult documented in this encounter Care Teams Tin Roofer Relationship Specialty Start Date End Date Cassandra Sinclair MD [address] [address] PCP - General Internal Medicine 02/10/21 documented as of this encounter
--- OUTSIDE RECORDS SUMMARY | 2023-09-01 15:36 | External Medical Summary ---
Author Name Unknown Address Unknown Organization K01:[facility] - [address] [facility] [id number] Laboratory Report Ordering Provider Test Date Status SHIRA ENG 06/25/2023 07:46:49 Final 12 hour fasting Observation Date Value Abnormality Reference (Units ) Status Triglyceride 06/25/2023 07:46:49 183 Above high normal <=174 (mg/dL) Final Triglyceride Reference Range s (mg/dL):
<150 Acceptable
150-174 Borderline high
175-499 High
>=500 Very high Cholesterol 06/25/2023 07:46:49 227 Above high normal <200 (mg/dL) Final Total Cholesterol Reference Ranges (mg/dL):
<200 Desirable
200-239 Borderline high
>=240 High HDL 06/25/2023 07:46:49 63 >49 (mg/dL ) Final HDL Cholesterol Reference Ra nges (mg/dL):
>=60 High (Desirable)
<50 Low (Undesirable) For Females
<40 Low (Undesirable) For Males NON-HDL CHOLESTEROL 06/25/2023 07:46:49 164 Above high normal <=159 (mg/dL) Final Non-HDL Cholesterol Referenc e Range (mg/dL):
<100 Target level for high risk ASCVD patient
<130 Optimal for general population
130-159 Near optimal for general population
160-189 Borderline High
190-219 High
>=220 Very High LDL, (calculated) 06/25/2023 07:46:49 127 <= 129 (mg/dL) Final LDL Cholesterol Reference Ra nges (mg/dL):
<70 Target level for high risk ASCVD patient
<100 Optimal for general population
100-129 Near optimal for general population
130-159 Borderline high
160-189 High
>=190 Very high Performing Location LABOR[facility] - [address] [facility] [address]
--- OUTSIDE RECORDS SUMMARY | 2023-09-01 15:36 | External Medical Summary | Summary of Care ---
Author Name Unknown Organization [facility] Address [address] [place] [address] Phone [phone] Care Team Providers Care Linen Room Attendant Name Role Phone Cassandra Sinclair MD Primary Care Provider Encounter Details Date Type Department Care Team (Late st Contact Info) Description 08/06/2023 Orders Only Outcomes Research Department [address] [place] [address] Shruthi Rudolph CHRA MyCode Research Other*[id number] Allergies No known active allergiesdocumented as of this encounter (statuses as of 08/06/2023) Medications Medication Sig Dispensed Refills Start Date [...] as of this encounter (statuses as of 08/06/2023) Active Problems Problem Noted Date Diagnosed Date Moderate episode of recurrent major depressive d isorder 05/18/2023 Ureteral stone 08/29/2022 Recurrent major depressive disorder 12/30/2020 Anxiety state 05/30/2019 Mood disorder 05/30/2019 Hepatic steatosis 05/15/2018 Overview: On CT from 05/13/18- normal liver function testing (05/13/18) Nephrolithiasis 05/15/2018 Overview: Right sided, seen on CT scan documented as of this encounter (statuses as of 08/06/2023) Resolved Problems Problem Noted Date Diagnosed Date Resolved Date Chlamydia infection 01/16/2022 02/01/20 Food insecurity 01/31/2021 02/09/2022 Overview: Per [facility] Protocol HEATHER (generalized anxiety disorder) 07/31/2018 05/30/2019 Moderate episode of recurren t major depressive disorder 07/31/2018 05/30/2019 Deliberate self-cutting 01/26/2017 050 10/2018 documented as of this encounter (statuses as of 08/06/2023) Immunizations Name Administration Dates Next Due COVID-19 mRNA, LNP-s, No Pre serve, 2-Dose Series ([employer]) 12/30/2020,12/09/2020 DTaP Dipth/Tet/Acell Pertussis (Infanrix), Peds 06/03/2001,01/08/1998,04/07/1997,1996,1996 HPV Vaccine, 9-Valent 09/07/2017,05/02/2017,120 09/2016 Hepatitis B, 0-19 yrs 07/07/1997,1996,10/1996 IPV - [...] on file documented as of this encounter Plan of Treatment Upcoming Encounters Date Type Department Care Team (Late st Contact Info) Description 08/13/2023 2:30 PM EDT Office Visit Psychiatry, [facility] [address] [place] [address] Monie Pierson CRNP [address] [place] [address] 09/19/2023 1:40 PM EDT Office Visit Family Practice [facility] [address] [address] Cassandra Sinclair MD [address] [address] 09/26/2023 8:40 AM EDT Nutrition Services Nutrition & Weight Management, [facility] [address] [place] [address] Shonna Siu RDN [address] [place] [address] 06/25/2024 1:00 PM EDT Office Visit Gynecology/Obstetrics [facility] [address] [place] [address] Antonella Brady CRNP [address] [place] [address] Scheduled Orders Name Type Priority Associated Diagnoses Orde r Schedule MYCODE SUBSEQUENT ADULT Lab Routine MyCode Research Other*[id number] Every 6 Months for 2 Occurrences starting 08/06/2023 until 08/25/2024 Health Maintenance Due Date Last Done Comments [...] as of this encounter Visit Diagnoses Diagnosis MyCode Research Other*[id number] documented in this encounter Care Teams Linen Room Attendant Relationship Specialty Start Date End Date Cassandra Sinclair MD [address] [place] [address] PCP - General Internal Medicine 02/10/21 documented as of this encounter
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
--- OUTSIDE RECORDS SUMMARY | 2023-09-01 15:37 | External Medical Summary ---
Author Name Unknown Address Unknown Organization K01:[facility] - [address] [place] [address] Laboratory Report Ordering Provider Test Date Status SUSAN CARMONA 05/18/2023 16:18:41 Final Observation Date Value Abnormality Reference (Units ) Status Hep C Ab 05/18/2023 16:18:41 Negative Negative Final Further HCV quantitative efrain ting not performed per protocol. Performing Location [facility] - [address] [place] [address]
--- OUTSIDE RECORDS SUMMARY | 2023-09-01 15:37 | External Medical Summary | Summary of Care ---
Author Name Unknown Organization [facility] Address [address] [place] [address] Phone [phone] Care Team Providers Care Track Service Worker Name Role Phone Cassandra Sinclair MD Primary Care Provider Reason for Referral * Evaluate & Treat - Unlimited Visits (Within 10 days (routine)) - Authorized Specialty Diagnoses / Procedures Referred By Contact Referred To Contact GI NUTRITION/IM / Gastroenterology Diagnoses Mood disorder (HCC) Monie Pierson CRNP [address] [place] [address] Referral ID Status Reason Start Date Expiration Date Visits Requested Visits Authorized [id number] Authorized Specialty Services Required 06/18/2023 [id number] Question Answer Referral Priority Within 10 days (routine) Where should this appointment be scheduled? [facility] For what condition is the patient being seen? Other Comments Weight management due to weight increase related to psychotropic medication treatment Reason for Visit * Reason Comments NEW PATIENT Evaluation Psychiatric * Evaluate & Treat - Unlimited Visits (Within 10 days (routine)) - Authorized Specialty Diagnoses / Procedures Referred By Contac t Referred To Contact Psychiatry Diagnoses Moderate episode of recurrent major depressive disorder (HCC) Cassandra Sinclair MD [address] [facility] [place] [address] Referral ID Status Reason Start Date Expiration Date Visits Requested Visits Authorized [id number] Authorized Specialty Services Required 3 [phone] Encounter Details Date Type Department Care Team (Late st Contact Info) Description 06/18/2023 9:00 AM EDT Office Visit Psychiatry, [facility] [address] [place] [address] Pierson, BENNIE Amezquita [address] [place] [address] Mood disorder (HCC)* Allergies No known active allergiesdocumented as of this encounter (statuses as of 06/22/2023) Medications Medication Sig Dispensed Refills Start Date End Date Status Tamsulosin HCl 0.4 MG Oral Capsule (Flomax) TAKE 1 CAPSULE IN THE MORNING 90 Capsule 3 11/30/2022 Active Etonogestrel-Ethiny l Estradiol 0.12-0.015 MG/24HR Vaginal Ring (NuvaRing)Indicatio ns:Encounter for initial prescription of vaginal ring hormonal [...] at bedtime. 90 Tablet 1 06/18/2023 Active FLUoxetine HCl 20 MG Oral Capsule (PROzac)Indications :Moderate episode of recurrent major depressive disorder (HCC) Take 1 Capsule by mouth in the morning. 90 Capsule 1 02/27/2023 06/18/2023 Discontinue d(Refill) QUEtiapine Fumarate 50 MG Oral Tablet (SEROquel)Indicatio ns:Moderate episode of recurrent major depressive disorder (HCC) Take 1 Tablet by mouth at bedtime. 90 Tablet 0 03/28/2023 06/18/2023 Discontinue d(Refill) documented as of this encounter (statuses as of 06/22/2023) Active Problems Problem Noted Date Diagnosed Date Moderate episode of recurrent major depressive d isorder 05/18/2023 Ureteral stone 08/29/2022 Recurrent major depressive disorder 12/30/2020 Anxiety state 05/30/2019 Mood disorder 05/30/2019 Hepatic steatosis 05/15/2018 Overview: On CT from 05/13/18- normal liver function testing (05/13/18) Nephrolithiasis 05/15/2018 Overview: Right sided, seen on CT scan documented as of this encounter (statuses as of 06/22/2023) Resolved Problems Problem Noted Date Diagnosed Date Resolved Date Chlamydia infection 01/16/2022 02/01/20 23 Food insecurity 01/31/2021 02/09/2022 Overview: Per [facility] Protocol HEATHER (generalized anxiety disorder) 07/31/2018 05/30/2019 Moderate episode of recurren t major depressive disorder 07/31/2018 05/30/2019 Deliberate self-cutting 01/26/201710/2018 documented as of this encounter (statuses as of 06/22/2023) Immunizations Name Administration Dates Next Due COVID-19 mRNA, LNP-s, No Pre serve, 2-Dose Series (MRI Interventions) 12/30/2020,12/09/2020 DTaP Dipth/Tet/Acell Pertussis (Infanrix), Peds 06/03/2001,01/08/1998,04/07/1997,1996,1996 HPV Vaccine, 9-Valent 09/07/2017,05/02/2017,1209/2016 Hepatitis B, 0-19 yrs 07/07/1997,1996,10/1996 IPV - [...] Progress Notes * Monie Pierson CRNP - 06/18/2023 9:15 AM EDT OUTPATIENT BEHAVIORAL HEALTH INITIAL EVALUATION Patient location: CLINIC. I was in the same facility as the patient. After connecting through [employer], patient was verified with two unique identifiers. Patient (or authorized legal sales representative leather goods)was then informed that this was a Telemedicine visit and being conducted confidentially over securelines. My office door was closed. No one else was in the room with me. Patient acknowledged consentand understanding of privacy and security of the Telemedicine visit, and gave permission to have a telemedicine presenter stay in the room in order to assist with the history and to conduct the exam as needed. I informed the patient that I have reviewed their record in [employer] and presented the opportunity for them to ask any questions regarding the visit today. The patient agreed to participate. Provider determined this patient has capacity to receive and benefit from telehealth services. Timing assessment: This is the initial onset of the assessed illness Start Time: 907 Stop Time: 1010 Referral Source: PCP, Dr. Sinclair History of Present Illness: Lashaun Guzman is a 27 year old person that presents for depression andmood swings. Per referral note 02/07/2023 by PCP: When last seen in June, Luis Miguel Foley was doing well. 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 Assessment by Dr. Mendez: Lashaun Thomas presents to acute care clinic due to [...] recommending any changes today. 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 Return in 2 months Diagnosis: ICD-10-CM 1. Mood disorder (HCC) F39 Mood disorder Rule out bipolar disorder mixed episode Plan: Medications: continue seroquel 50 mg QHS and Prozac 20 mg AM Therapy: continue as scheduled Community Resources: none at this time Lab tests/Medical: A1C, Lipids, CBC Return in: 2 months Treatment options and recommendations/interventions reviewed. Patient and/or caregiver verbalize understanding and agrees to plan with explanation of risks/benefits, aware of how to contact clinic with questions. Information about current meds reviewed/provided /offered. Provider reviewed risks/benefits/side effects and potential complications. Recommended to not change meds/dosage without medical advise. documented in this encounter Plan of Treatment Upcoming Encounters Date Type Department Care Team (Late st Contact Info) Description 08/13/2023 2:30 PM EDT Office Visit [facility], [facility] [address] [place] [address] Monie Pierson CRNP [address] [facility] [place] [address] 09/05/2023 12:00 PM EDT Office Visit Family Practice [facility] [address] [place] [address] Cassandra Sinclair MD [address] [place] [address] 06/25/2024 1:00 PM EDT Office Visit Gynecology/Obstetrics [facility] [address] [place] [address] Antonella Brady CRNP [address] [place] [address] Scheduled Orders Name Type Priority Associated Diagnoses Orde r Schedule CBC WITH WBC DIFFERENTIAL Lab Routine Mood disorder (HCC) Every 3 Months for 3 Occurrences starting 06/18/2023 until 06/17/2024 LIPID PANEL WITH DIRECT LDL IF TG IS HIGH Lab Routine Mood disorder (HCC) Every 3 Months for 3 Occurrences starting 06/18/2023 until 06/17/2024 HEMOGLOBIN A1C Lab Routine Mood disorder (HCC) Every 3 Months for 3 Occurrences starting 06/18/2023 until 06/17/2024 Scheduled Referrals Name Type Priority Associated Diagnoses Orde r Schedule GI NUTRITION REFERRAL OP Referral Within 10 days (routine) Mood disorder (HCC) Ordered: 06/18/2023 Health Maintenance Due Date Last Done Comments Pap Smear 08/20/2023 08/19/2020, 03/15/2018 Depression Screening 05/18/2024 05/18/2023 DTaP,Tdap,and Td Vaccines (7 - Td or [...] disorder documented in this encounter Care Teams Track Service Worker Relationship Specialty Start Date End Date Cassandra Sinclair MD [address] [place] [address] PCP - General Internal Medicine 02/10/21 documented as of this encounter
--- OUTSIDE RECORDS SUMMARY | 2023-09-01 15:37 | External Medical Summary | Summary of Care ---
Author Name Unknown Organization [facility] Address [address] [place] [address] Phone [phone] Care Team Providers Care Secretary Office Clerk Name Role Phone Cassandra Sinclair MD Primary Care Provider Reason for Visit * Reason Comments Outpatient Testing Encounter Details Date Type Department Care Team (Late st Contact Info) Description 05/18/2023 4:50 PM EST Laboratory Laboratory, [facility] [address] [place] [id number] [facility] [address] [place] [address] Urinary frequency; Screening examination for STD (sexually transmitted disease); Routine screening for STI (sexually transmitted infection) Allergies No known active allergiesdocumented as of this encounter (statuses as of 05/18/2023) Medications Medication Sig Dispensed Refills Start Date End Date Status Tamsulosin HCl 0.4 MG Oral Capsule (Flomax) TAKE 1 CAPSULE IN THE MORNING 90 Capsule 3 11/30/2022 Active FLUoxetine HCl 20 MG Oral Capsule (PROzac)Indications:Mo derate episode of recurrent major depressive disorder (HCC) Take 1 Capsule by mouth in the morning. 90 Capsule 1 02/27/2023 Active QUEtiapine Fumarate 50 MG Oral Tablet (SEROquel)Indications: Moderate episode of recurrent major depressive disorder (HCC) Take 1 Tablet by mouth at bedtime. 90 Tablet 0 03/28/2023 Active Etonogestrel-Ethinyl Estradiol 0.12-0.015 MG/24HR Vaginal Ring (NuvaRing)Indications: Encounter for initial prescription of vaginal ring hormonal contraceptive Put 1 ring in vagina. Leave in for 3 weeks. Remove for one week. Then start over with new ring. 1 Each 12 05/18/2023 Active documented as of this encounter (statuses as of 05/18/2023) Active Problems Problem Noted Date Diagnosed Date Moderate episode of recurrent major depressive d isorder 05/18/2023 Ureteral stone 08/29/2022 Recurrent major depressive disorder 12/30/2020 Anxiety state 05/30/2019 Mood disorder 05/30/2019 Hepatic steatosis 05/15/2018 Overview: On CT from 05/13/18- normal liver function testing (05/13/18) Nephrolithiasis 05/15/2018 Overview: Right sided, seen on CT scan documented as of this encounter (statuses as of 05/18/2023) Resolved Problems Problem Noted Date Diagnosed Date Resolved Date Chlamydia infection 01/16/2022 02/01/20 Food insecurity 01/31/2021 02/09/2022 Overview: Per [facility] Protocol HEATHER (generalized anxiety disorder) 07/31/2018 05/30/2019 Moderate episode of recurren t major depressive disorder 07/31/2018 05/30/2019 Deliberate self-cutting 01/26/201710/2018 documented as of this encounter (statuses as of 05/18/2023) Immunizations Name Administration Dates Next Due COVID-19 mRNA, LNP-s, No Pre serve, 2-Dose Series (Pfizer) 12/30/2020,12/09/2020 DTaP Dipth/Tet/Acell Pertussis (Infanrix), Peds 06/03/2001,01/08/1998,04/07/1997,1996,1996 HPV Vaccine, 9-Valent 09/07/2017,05/02/2017,1209/2016 Hepatitis B, 0-19 yrs 07/07/1997,1996,0710/1996 IPV - Polio Virus Vaccine (Inact) 2001,04/07/1997,02/03/1997,1996 [...] Answer Date Recorded PHQ Adult Total Score 22 02/07/2023 Hunger Vital Sign Answer Date Recorded Within [...] EDT Office Visit Psychiatry, [facility] [address] [place] [address] Pierson, BENNIE Amezquita [address] [place] [address] 07/25/2023 2:40 PM EDT Office Visit Family Practice [facility] [address] [place] [address] Cassandra Sinclair MD [address] [place] [address] Pending Results Name Type Priority Associated Diagnoses Date /Time COMPREHENSIVE METABOLIC PANEL Lab Routine Urinary frequency 05/18/2023 4:18 PM EST SYPHILIS ANTIBODY SCREEN WITH REFLEX TO RPR Lab Routine Screening examination for STD (sexually transmitted disease) 05/18/2023 4:18 PM EST HIV ANTIGEN & ANTIBODY SCREEN W/ CONFIRMATION Lab Routine Screening examination for STD (sexually transmitted disease) 05/18/2023 4:18 PM EST HEPATITIS C ANTIBODY SCREEN WITH PROGRESSION TO HEPATITIS C RNA QUANTITATIVE Lab Routine Screening examination for STD (sexually transmitted disease) 05/18/2023 4:18 PM EST SYPHILIS ANTIBODY SCREEN Lab Routine Screening examination for STD (sexually transmitted disease) 05/18/2023 4:18 PM EST HEPATITIS C ANTIBODY Lab Routine Screening examination for STD (sexually transmitted disease) 05/18/2023 4:18 PM EST HEPATITIS C RNA ADD ON Lab Routine Screening examination for STD (sexually transmitted disease) 05/18/2023 4:18 PM EST CHLAMYDIA TRACHOMATIS AND NEISSERIA GONORRHOEAE, AMPLIFIED PROBE Lab Routine Routine screening for STI (sexually transmitted infection) 05/18/2023 4:20 PM EST Health Maintenance Due Date Last Done Comments Pap Smear 08/20/2023 08/19/2020, 03/15/2018 Depression Screening 05/18/2024 05/18/2023 DTaP,Tdap,and Td Vaccines (7 - Td or Tdap) 12/01/2026 12/01/2016, 06/03/2001, 01/08/1998, Additional history exists Hepatitis B Completed 07/07/1997, 10/1996, 1996 GARDASIL-HPV IMMUNIZATION SERIES Completed 09/07/2017, 05/02/2017, 03/01/2017 COVID-19 Vaccine Discontinued 12/30/2020, 12/09/2020 Gonorrhea / Chlamydia Screen Discontinued 12/13/2022, 02/08/2022, 01/09/2022, Additional history exists Influenza Vaccine (FLU shot) Completed 02/07/2023, 01/16/2022, 12/22/2020, Additional history exists MENINGOCOCCAL (MENACTRA/MENVEO) Aged Out No longer eligible based on patient's age to complete this topic Pneumococcal Vaccine: Pediatrics (0 to 5 Years) and At-Risk Patients (6 to 64 Years) Aged Out No longer eligible based on patient's age to complete this topic documented as of this encounter Medical Devices Not on filedocumented as of this encounter Visit Diagnoses Diagnosis Urinary frequency Screening examination for STD (sexually transmitted disease) Screening examination for venereal disease Routine screening for STI (sexually transmitted infection) Screening examination for venereal disease documented in this encounter Care Teams Secretary Office Clerk Relationship Specialty Start Date End Date Cassandra Sinclair MD [address] [place] [address] PCP - General Internal Medicine 02/10/21 documented as of this encounter
--- OUTSIDE RECORDS SUMMARY | 2023-09-01 15:37 | External Medical Summary | Summary of Care ---
Author Name Unknown Organization [facility] Address [address] [place] [address] Phone [phone] Care Team Providers Care Bull Ladle Tender Name Role Phone Cassandra Sinclair MD Primary Care Provider Reason for Visit * Reason Comments Follow Up Feeling much better on Seroquel but gaining weight on it. Encounter Details Date Type Department Care Team (Latest Contact Info) Description 05/18/2023 3:20 PM EST Office Visit Family Practice [facility] [address] [facility] [place] [address] Cassandra Sinclair MD [address] [facility] [place] [address] Moderate episode of recurrent major depressive disorder (HCC)*; Routine screening for STI (sexually transmitted infection); Encounter for initial prescription of vaginal ring hormonal contraceptive Allergies No known active allergiesdocumented as of [...] 02/01/20 Food insecurity 01/31/2021 02/09/2022 Overview: Per [facility] Protocol HEATHER (generalized anxiety disorder) 07/31/2018 05/30/2019 Moderate episode of recurren t major depressive disorder 07/31/2018 05/30/2019 Deliberate self-cutting 01/26/2017 05/0 10/2018 documented as of this encounter (statuses as of 05/18/2023) Immunizations Name Administration Dates Next Due COVID-19 mRNA, LNP-s, No Pre serve, 2-Dose Series ([employer]) 12/30/2020,12/09/2020 DTaP Dipth/Tet/Acell Pertussis (Infanrix), Peds 06/03/2001,01/08/1998,04/07/1997,1996,1996 [...] Date Smoking Tobacco: Never Smokeless Tobacco: Never Tobacco Cessation:Counseling Given: Not Answered Alcohol Use Standard Drinks/Week Comments No 0 [...] Sign Reading Time Taken Comments Blood Pressure 120/86 05/18/2023 3:31 PM EST Pulse 87 05/18/2023 3:31 PM EST Temperature 36.4 C (97.6 F) 05/18/2023 3:31 PM ES T Respiratory Rate 16 05/18/2023 3:31 PM EST Oxygen Saturation 98% 05/18/2023 3:31 PM EST Inhaled Oxygen Concentration - - Weight 92.1 kg (203 lb) 05/18/2023 3:31 PM EST Height - - Body Mass Index 33.78 01/31/2023 8:03 AM EST documented in this encounter Progress Notes * Cassandra Sinclair MD - 05/18/2023 3:44 PM EST Images from the original note were not included. History of Present Illness Lashaun Guzman is a 27 year old female that presents for Follow Up (Feeling much better on Seroquelbut gaining weight on it.) Seroquel has overall been very positive. Mind is much calmer, able to reflect on things, impulsivity is much decreased. Sleeping at night, awake during the day. 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 Ended up keeping the 3rd dog she impulsively purchased, it is going okay. Continues in individual therapy with Carmen Pitts, shehas been happy with her progress. Only downside to Seroquel has been weight gain. New male partner, sexually active for one-month, not using condoms. Wonders if she should be worried about fertility since she has not gotten yet. Past use of Depo-Provera, last injection spring 2021. Four partners since last HIV test. Last chlamydia November 2022. Amenable to restarting contraception. Hesitant to start Depo given prolonged returned to fertility and possible weight gain. Current medications and allergies reviewed. Past medical history and problem list reviewed. Physical Exam Vitals: 05/18/23 1531 Temp: 36.4 C (97.6 F) Pulse: 87 Resp: 16 SpO2: 98% BP: 120/86 BP Readings from Last 3 Encounters: 05/18/23 120/86 02/07/23 118/84 01/31/23 110/80 Wt Readings from Last 3 Encounters: 05/18/23 92.1 kg (203 lb) 02/07/23 87.7 kg (193 lb 6.4 oz) 01/31/23 87 kg (191 lb 12.8 oz) Physical Exam Vitals and nursing note reviewed. Constitutional: Appearance: Normal appearance. She is not ill-appearing. Skin: Coloration: Skin is not jaundiced or pale. Neurological: Mental Status: She is alert. Psychiatric: Mood and Affect: Mood normal. Behavior: Behavior normal. Comments: Much more calm. I have reviewed the following results: Chlamydia/gonorrhea, HIV Assessment and Plan Moderate episode of recurrent major depressive disorder (HCC) Continue with Seroquel and Prozac 20 for now. Has visit to establish care with psychiatric nurse practitioner in just a few weeks. Might be smart to just continue with current regimen and allow her to build healthy, steady new habits. Can also discuss with her other mood stabilizing options that may not come with as much weight gain. Routine screening for STI (sexually transmitted infection) Strongly encouraged condom use - CHLAMYDIA TRACHOMATIS AND NEISSERIA GONORRHOEAE, AMPLIFIED PROBE; Future - HIV ANTIGEN & ANTIBODY SCREEN W/ CONFIRMATION; Future - SYPHILIS ANTIBODY SCREEN WITH REFLEX TO RPR; Future Encounter for initial prescription of vaginal ring hormonal contraceptive Strongly encouraged effective contraception as she does not wish to be right now. Reviewedhow to use the NuvaRing. - Etonogestrel-Ethinyl Estradiol 0.12-0.015 MG/24HR Vaginal Ring (NuvaRing); Put 1 ring in vagina. Leave in for 3 weeks. Remove for one week. Then start over with new ring. Wrap-Up Follow Up: Return in 4 months (on 09/16/2023) for Labs Today, Return with Yahir. | For: Labs Today, Return with Yahir Time: I spent a total of 20-29 minutes (exact time 28 mins) on the date of service in preparation, delivery, and documentation of the care provided to Lashaun Guzman excluding any time spent in the performance of separately billed services. documented in this encounter Plan of Treatment Upcoming Encounters Date Type Department Care Team (Late st Contact Info) Description 06/18/2023 9:00 AM EDT Office Visit Psychiatry, [facility] [address] [place] [address] Monie Pierson CRNP [address] [place] [address] 07/25/2023 2:40 PM EDT Office Visit Family Practice [facility] [address] [place] [address] Cassandra Sinclair MD [address] [place] [address] Pending Results Name Type Priority Associated Diagnoses Date /Time CHLAMYDIA TRACHOMATIS AND NEISSERIA GONORRHOEAE, AMPLIFIED PROBE Lab Routine Routine screening for STI (sexually transmitted infection) 05/18/2023 4:20 PM EST Scheduled Orders Name Type Priority Associated Diagnoses Orde r Schedule CHLAMYDIA TRACHOMATIS AND NEISSERIA GONORRHOEAE, AMPLIFIED PROBE Lab Routine Routine screening for STI (sexually transmitted infection) Expected: 05/18/2023, Expires: 05/18/2024 Health Maintenance Due Date Last Done Comments [...] as of this encounter Visit Diagnoses Diagnosis Moderate episode of recurrent major depressive disorder (HCC)- Primary Routine screening for STI (sexually transmitted infection) Screening examination for venereal disease Encounter for initial prescription of vaginal ring hormonal contraceptive documented in this encounter Care Teams Bull Ladle Tender Relationship Specialty Start Date End Date Cassandra Sinclair MD [address] [place] [address] PCP - General Internal Medicine 02/10/21 documented as of this encounter"
--- OUTSIDE RECORDS SUMMARY | 2023-09-01 15:37 | External Medical Summary ---
Author Name Unknown Address Unknown Organization [id number]:[facility] [facility] [address] [facility] [address] Laboratory Report Ordering Provider Test Date Status DICK MORGAN 05/18/2023 16:18:41 Final Observation Date Value Abnormality Reference (Units ) Status BUN 05/18/2023 16:18:41 10 6-20 (mg/dL) Final Creatinine 05/18/2023 16:18:41 0.6 0.5-1.0 (mg/dL) Final Glomerular filtration rate/1.73 sq M.predicted [Volume Rate/Area] in Serum, Plasma or Blood by Creatinine-based formula (CKD-EPI) 05/18/2023 16:18:41 >90 >=60 (mL/min) Final eGFR is calculated based on the CKD-EPI 2020 equation SODIUM 05/18/2023 16:18:41 140 135-146 (m mol/L) Final Potassium 05/18/2023 16:18:41 3.8 3.5-5.1 (m mol/L) Final Cl 05/18/2023 16:18:41 101 98-107 (mm ol/L) Final CO2 05/18/2023 16:18:41 25 22-32 (mmo l/L) Final Anion gap 05/18/2023 16:18:41 14 7-15 (mmol /L) Final Glucose 05/18/2023 16:18:41 77 70-120 (mg /dL) Final Albumin 05/18/2023 16:18:41 4.9 3.8-5.0 (g /dL) Final AST (Aspartate aminotransferase) 05/18/2023 16:18:41 25 10-35 (U/L) Fin al Alk Phos 05/18/2023 16:18:41 84 35-130 (U/ L) Final Bilirubin, Total 05/18/2023 16:18:41 0.3 <=1 .2 (mg/dL) Final Calcium 05/18/2023 16:18:41 9.9 8.4-10.2 ( mg/dL) Final Protein 05/18/2023 16:18:41 7.2 6.0-8.3 (g /dL) Final ALT (Alanine aminotransferase) 05/18/2023 16:18:41 43 Above high normal 10-35 (U/L) Final Performing Location [facility] [address] [facility] [address]
--- OUTSIDE RECORDS SUMMARY | 2023-09-01 15:37 | External Medical Summary ---
Author Name Unknown Address Unknown Organization [id number]:[facility] [place] - [address] [facility] [address] [place] [address] Laboratory Report Ordering Provider Test Date Status ORALIA HUANG 06/25/2023 07:46:49 Final Observation Date Value Abnormality Reference (Units ) Status MYCODE SPECIMEN-SST 06/25/2023 07:46:49 Freezing of extracted DNA, whole blood and/or serum. Final Performing Location [facility] [place] - [address] [facility] [address]
--- OUTSIDE RECORDS SUMMARY | 2023-09-01 15:37 | External Medical Summary ---
Author Name Unknown Address Unknown Organization [id number]:[facility] [place] [address] [facility] [address] Laboratory Report Ordering Provider Test Date Status SUSAN CARMONA 05/18/2023 16:18:41 Final Observation Date Value Abnormality Reference (Units ) Status HIV 1+2 Ab+HIV1 p24 Ag [Presence] in Serum or Plasma by Immunoassay 05/18/2023 16:18:41 Negative Negative Final Negative HIV-1/2 antigen and antibody screening tset results usually indicate the absence of HIV-1 and HIV-2 infection. However, such negative results do not rule-out acute HIV infection. If acute HIV-1 infection is highly suspected, it is recommended that a specimen be submitted for detection of HIV-1 RNA. Performing Location [facility] [place] [address] [facility] [address]
--- OUTSIDE RECORDS SUMMARY | 2023-09-01 15:37 | External Medical Summary | Summary of Care ---
Author Name Unknown Organization [facility] Address [address] [place] [address] Phone [phone] Care Team Providers Care Survey Research Manager Name Role Phone Cassandra Sinclair MD Primary Care Provider Reason for Visit * Reason Comments Medication Refill Encounter Details Date Type Department Care Team (Late st Contact Info) Description 03/23/2023 Refill Family Practice [facility] [address] [place] [address] Cassandra Sinclair MD [address] [facility] [place] [address] Moderate episode of recurrent major depressive disorder (HCC) Allergies No known active allergiesdocumented as of this encounter (statuses as of 03/28/2023) Medications Medication Sig Dispensed Refills Start Date End Date Status Tamsulosin HCl 0.4 MG Oral Capsule (Flomax) TAKE 1 CAPSULE IN THE MORNING 90 Capsule 3 11/30/2022 Active FLUoxetine HCl 20 MG Oral Capsule (PROzac)Indicatio ns:Moderate episode of recurrent major depressive disorder (HCC) Take 1 Capsule by mouth in the morning. 90 Capsule 1 02/27/2023 Active QUEtiapine Fumarate 50 MG Oral Tablet (SEROquel)Indicat ions:Moderate episode of recurrent major depressive disorder (HCC) Take 1 Tablet by mouth at bedtime. 90 Tablet 0 03/28/2023 Active QUEtiapine Fumarate 50 MG Oral Tablet (SEROquel)Indicat ions:Moderate episode of recurrent major depressive disorder (HCC) Take 1 Tablet by mouth at bedtime. 30 Tablet 1 02/09/2023 03/23/2023 Discontinued (Refill) documented as of this encounter (statuses as of 03/28/2023) Active Problems Problem Noted Date Diagnosed Date Ureteral stone 08/29/2022 Recurrent major depressive disorder 12/30/2020 Anxiety state 05/30/2019 Mood disorder 05/30/2019 Hepatic steatosis 05/15/2018 Overview: On CT from 05/13/18- normal liver function testing (05/13/18) Nephrolithiasis 05/15/2018 Overview: Right sided, seen on CT scan documented as of this encounter (statuses as of 03/28/2023) Resolved Problems Problem Noted Date Diagnosed Date Resolved Date Chlamydia infection 01/16/2022 02/01/20 23 Food insecurity 01/31/2021 02/09/2022 Overview: Per [facility] Protocol HEATHER (generalized anxiety disorder) 07/31/2018 05/30/2019 Moderate episode of recurren t major depressive disorder 07/31/2018 05/30/2019 Deliberate self-cutting 01/26/201710/2018 documented as of this encounter (statuses as of 03/28/2023) Immunizations Name Administration Dates Next Due COVID-19 mRNA, LNP-s, No Pre serve, 2-Dose Series ([employer]) 12/30/2020,12/09/2020 DTaP Dipth/Tet/Acell Pertussis (Infanrix), Peds 06/03/2001,01/08/1998,04/07/1997,1996,1996 [...] on file documented as of this encounter Miscellaneous Notes * Telephone Encounter - Cassandra Sinclair MD - 03/28/2023 8:37 AM EST Signed Prescriptions: Disp Refills QUEtiapine Fumarate 50 MG Oral Tablet (SER*90 Tab*0 Sig: Take 1 Tablet by mouth at bedtime. Authorizing Provider: CASSANDRA SINCLAIR * Telephone Encounter - Jazmine Schmidt CPhT - 03/27/2023 2:04 PM EST pharmacy calling to check on status of quetiapine. Caller can be reached at [phone]. Thank you, Jazmine Schmidt CphT Acid Crane Operator III [facility] (formerly [facility]) 03/27/2023,2:04 PM * Telephone Encounter - Hollie Leone LPN - 03/27/2023 1:24 PM ESTPending Prescriptions: Disp Refills QUEtiapine Fumarate 50 MG Oral Tablet (SER*30 Tab*1 Sig: Take 1 Tablet by mouth at bedtime. * Telephone Encounter - Hollie Leone LPN - 03/27/2023 1:21 PM EST Did you pend patient's preferred pharmacy and medication before forwarding?yes Pharmacy: [facility] Pending Prescriptions: Disp Refills QUEtiapine Fumarate 50 MG Oral Tablet (SE*30 Tab*1 Sig: Take 1 Tablet by mouth at bedtime. Last Visit: 02/07/2023 (in office), Visit date not found (telemedicine) Next Visit: 05/16/2023 If no future appointments scheduled, and last appointment is greater than a year ago, please schedule patient for a follow-up appointment Last date the medication was ordered: 02/09/2023 Is this request for a controlled substance?No Urine Drug Screen:No results found for this or any previous visit. Patient Phone Numbers Labs: Lab Results Component Value Date/Time CREAT 0.7 08/23/2022 12:11 PM CREAT 0.6 06/21/2015 12:00 AM POTASSIUM 3.9 08/23/2022 12:11 PM POTASSIUM 4.0 06/21/2015 12:00 AM TSH 2.69 02/07/2023 02:54 PM TSH 2.87 10/25/2018 10:36 AM LDLCALC 168 (H) 02/07/2023 02:54 PM LDLCALC 125 (A) 06/21/2015 12:00 AM ALT 43 (H) 08/23/2022 12:11 PM HGBA1C 5.1 02/07/2023 02:54 PM * Telephone Encounter - Yelena Tapia - 03/24/2023 12:18 AM ESTPending Prescriptions: Disp Refills QUEtiapine Fumarate 50 MG Oral Tablet (SER*30 Tab*1 Sig: Take 1Tablet by mouth at bedtime. documented in this encounter Plan of Treatment Upcoming Encounters Date Type Department Care Team (Late st Contact Info) Description 05/16/2023 1:00 PM EST Office Visit Family Practice [facility] [address] [place] [address] Cassandra Sinclair MD [address] [place] [address] 06/18/2023 9:00 AM EDT Office Visit Psychiatry, Carlita Thorpe [address] [place] [address] Monie Pierson CRNP [address] [place] [id number] 07/25/2023 2:40 PM EDT Office Visit Family Practice [facility] [address] [place] [address] Cassandra Sinclair MD [address] [place] [address] Health Maintenance Due Date Last Done Comments Depression, Most Recent Score >= 10 (will fire each visit until score < 10) 02/08/2023 02/07/2023 Pap Smear 08/20/2023 08/19/2020, 03/15/2018 DTaP,Tdap,and Td [...] episode of recurrent major depressive disorder (HCC) documented in this encounter Care Teams Survey Research Manager Relationship Specialty Start Date End Date Cassandra Sinclair MD [address] [place] [address] PCP - General Internal Medicine 02/10/21 documented as of this encounter
--- OUTSIDE RECORDS SUMMARY | 2023-09-01 15:37 | External Medical Summary ---
Author Name Unknown Address Unknown Organization K01:[facility] [place] [address] [facility] [address] Laboratory Report Ordering Provider Test Date Status MICK GARRIDO 05/18/2023 16:20:37 Final Observation Date Value Abnormality Reference (Units ) Status Chlamydia trachomatis rRNA [Presence] in Specimen by TRACY with probe detection 05/18/2023 16:20:37 Negative Negative Final No Chlamydia trachomatis det ected by office clerk-mediated nucleic acid amplification. Neisseria gonorrhoeae rRNA [ Presence] in Specimen by TRACY with probe detection 05/18/2023 16:20:37 Negative Negative Final No Neisseria gonorrhoeae det ected by office clerk-mediated nucleic acid amplification. Performing Location [facility] [address] [facility] [address]
--- OUTSIDE RECORDS SUMMARY | 2023-09-01 15:37 | External Medical Summary ---
Author Name Unknown Address Unknown Organization K01:[facility] [place] [address] [facility] [address] Laboratory Report Ordering Provider Test Date Status SUSAN CARMONA 05/18/2023 16:18:41 Final Observation Date Value Abnormality Reference (Units ) Status Treponema pallidum Ab [Presence] in Serum by Immunoassay 05/18/2023 16:18:41 Nonreactive Nonreactive Final No serologic evidence of syp hilis. No additional testing clinicially indicated at this time. Consider repeat testing in 2-4 weeks if acute or primary syphilis is suspected. Performing Location [facility] [place] [address] [facility] [address]
[2023-09-01] MEDS: PROMETHAZINE HCL 12.5 MG in SODIUM CHLORIDE 0.9% 50 ML IV PRN (18:03)
[2023-09-01] MEDS: QUEtiapine FUMARATE 25 MG TABLET PO SCH (20:16)
[2023-09-02 01:02] LABS: ANTI-Xa, UFH(UnfractionatedHep 0.23 IU/ml (0.3-0.7)
[2023-09-02 05:56] LABS: Basophils # (auto) 0.08 K/uL (0.00-0.20); Basophils % (auto) 0.8 %; Eosinophils # (auto) 0.38 K/uL (0.00-0.50); Eosinophils % (auto) 3.6 %; Hematocrit (blood only) 40.4 % (37.0-47.0); Hemoglobin 13.5 g/dl (12.0-16.0); Immature Granulocytes # (auto) 0.07 K/uL (0.01-0.20); Immature Granulocytes % (auto) 0.7 %; Lymphocytes # (auto) 4.14 K/uL (1.20-3.40); Lymphocytes % (auto) 39.2 %; Mean Corpuscular Hemoglobin 30.1 pg (25.0-34.0); Mean Corpuscular Hgb Conc 33.4 g/dL (32.0-36.0); Mean Corpuscular Volume 90.2 fL (80.0-100.0); Mean Platelet Volume 9.4 fL (9.4-12.4); Monocytes # (auto) 0.65 K/uL (0.11-0.59); Monocytes % (auto) 6.1 %; Neutrophils # (auto) 5.25 K/uL (1.40-6.50); Neutrophils % (auto) 49.6 %; Platelet Count 310 K/uL (130-400); RDW Coefficient of Variation 12.3 % (11.5-14.5); Red Blood Count 4.48 M/uL (4.20-5.40); White Blood Count 10.57 K/ul (4.8-10.8)
[2023-09-02 06:16] LABS: ANTI-Xa, UFH(UnfractionatedHep 0.23 IU/ml (0.3-0.7)
[2023-09-02 06:30] LABS: BUN Creatinine Ratio 10.8 (10-20); Calcium 9.3 mg/dl (8.6-10.3); Creatinine Clr Calc Pharmacy 127.7 ml/min; Est GFR (African American) 129.6 ml/min; Est GFR (Non-African American) 111.8 ml/min; Potassium 4.3 mmol/L (3.5-5.1)
[2023-09-02] MEDS: APIXABAN 5 MG TABLET PO SCH (10:34)
--- NOTE | 2023-09-02 11:54 | Hospitalist Progress Note ---
Date of Service September 02, 2023 Assessment & Plan (1) Pulmonary emboli: Plan: 27-year-old female with past medical history significant for hepatic steatosis, history of nephrolithiasis, mood disorder, anxiety state, recurrent depression comes because of chest pain going on for last 2 weeks and has dyspnea on exertion starting today and found to have acute PE. Patient states since last 2 weeks she is having chest pains more with inhalation on the right side but today walking short distance made her short of breath which prompted her come to the hospital. Denies any fevers. No cough. She had some dizziness. No headache. Vision is okay. No runny nose or sore throat. No nausea. No abdominal pain. Normal bowel and bladder movements. Hemodynamics are okay. Patient states She had control vaginal ring placed about 3 months ago. No history of blood clots in the past. No family history of blood clots as per patient. Denies smoking. Denies leg swelling Multiple pulmonary emboli Right lower lobar pulm emboli and additional emboli in subsegmental branch of the remaining lungs with 2 peripheral pulmonary infarcts in the right lower lobe and likely reactive pleural effusion on the CAT scan Possible cause control vaginal ring On IV heparin Ultrasound of the legs have been negative for any DVTs Hypercoagulable workup as outpatient Clinically little better Discussed about oral anticoagulation Prefers to have Eliquis versus Xarelto Will start the medication from tomorrow Echo did not show any RV strain Advised to discontinue current contraceptive method She was started with oral Eliquis and she will be discharged home this afternoon She will need to see an skeet operator as an outpatient and probably will need hypercoagulable workup as an outpatient History of mood disorder anxiety recurrent depression continue home meds DVT prophylaxis IV heparin disposition med/telemetry full code Will be discharged home this afternoon Admission and Anticipated Discharge Date Admission Date: August 31, 2023 Subjective 09/01/2023 The patient was seen and examined in emergency room in presence of the mother Has been complaining of chest pain with shortness of breath for the last 2 weeks No cough and/or hemoptysis No calf swelling or calf pain 09/02/2023 The patient was seen and examined in medical telemetry unit She has been stable without any significant pain in chest and no shortness of She has been ambulating without any difficulties Review of Systems Review of Systems: All systems reviewed and are unremarkable except as noted below Physical Exam Physical Exam: Lying in bed comfortably Constitutional: well developed, well nourished and + ill appearing Eyes: PERRL, conjunctivae normal, anicteric sclerae ENMT: external ear and nose normal, oropharynx normal Neck: trachea midline, no thyromegaly Respiratory: no respiratory distress Auscultation: + crackles; + lungs not clear to auscultation Cardiovascular: Rate/Rhythm: regular rate and regular rhythm; not tachycardic Heart Sounds: normal S1 and normal S2; no murmur Extremities: no edema Gastrointestinal (Abdomen): Inspection/Auscultation: normal bowel sounds; abdomen not distended Percussion/Palpation: abdomen soft; abdomen nontender Musculoskeletal: No acute arthritis involving any of the joints Neurologic: normal touch/pain/proprioception and moves all extremities; no focal motor deficits Psychiatric: A+Ox3, euthymic affect Lymphatic: no cervical or axillary lymphadenopathy Results & Data Results & Data Vital Signs (Past 12 Hours) Vital Signs Temp Pulse Pulse Resp BP Pulse Ox O2 Del Method 09/02/23 11:41 36.7 C 86 18 127/80 96 Room Air 09/02/23 07:56 37.1 C 71 18 126/85 97 Room Air 09/02/23 06:40 73 09/02/23 03:50 36.6 C 78 16 109/75 95 Room Air Laboratory Results Short CBC 09/02/23 Range/Units 05:41 WBC 10.57 (4.8-10.8) K/ul Hgb 13.5 (12.0-16.0) g/dl Hct 40.4 (37.0-47.0) % Plt Count 310 (130-400) K/uL [facility] 09/02/23 05:41 Sodium 137 Potassium 4.3 D Chloride 104 Carbon Dioxide 26 BUN 8 Creatinine 0.74 Glucose 85 Calcium 9.3 Medications Administered Current Inpatient Medications Acetaminophen (Acetaminophen 325 Mg Tab) 650 mg PO Q6H PRN PRN Reason: Pain or Fever Stop: 10/01/23 01:15 Apixaban (Apixaban 5 Mg Tablet) 10 mg PO BID [facility] Stop: 09/08/23 21:01 Last Admin: 09/02/23 10:34 Dose: 10 mg Fluoxetine HCl (Fluoxetine Hcl 20 Mg Cap) 20 mg PO QAM [facility] Stop: 10/01/23 08:59 Last Admin: 09/02/23 08:35 Dose: 20 mg Hydromorphone HCl (Hydromorphone Inj 0.5 Mg/0.5 Ml Syr) 0.5 mg IV Q4H PRN PRN Reason: Severe Pain (Scale 7, 8, 9,10) Stop: 09/15/23 02:53 Last Admin: 09/01/23 17:12 Dose: 0.5 mg Promethazine HCl 12.5 mg/ (Sodium Chloride) 50.5 mls @ 202 mls/hr IV Q6H PRN PRN Reason: Nausea And Vomiting Stop: 10/01/23 17:59 Last Infusion: 09/01/23 18:22 Dose: Infused Ondansetron HCl (Ondansetron Inj 2 Mg/Ml 2 Ml Vial) 4 mg IV Q6H [facility] Stop: 10/01/23 13:44 Last Admin: 09/02/23 08:35 Dose: 4 mg Polyethylene Glycol (Polyethylene (Miralax) 17 Gm Pack) 17 gm PO DAILY PRN PRN Reason: Constipation Stop: 10/01/23 01:15 Quetiapine Fumarate (Quetiapine Fumarate 25 Mg Tablet) 50 mg PO HS [facility] MARIA Stop: 10/01/23 20:59 Last Admin: 09/01/23 20:16 Dose: 50 mg Tramadol HCl (Tramadol Hcl 50 Mg Tablet) 50 mg PO Q6H PRN PRN Reason: Mod-Sev Pain (Scale 4-10) Stop: 10/01/23 00:29 Last Admin: 09/01/23 10:39 Dose: 50 mg (1) Pulmonary emboli Acute cor pulmonale presence: unspecified Chronicity: acute Pulmonary embolism type: unspecified Qualified Code(s): I26.99 - Other pulmonary embolism without acute cor pulmonale
--- NOTE | 2023-09-02 16:36 | Discharge Summary ---
Date of Service September 02, 2023 Admission HPI Per Admitting Provider 27-year-old female with past medical history significant for hepatic steatosis, history of nephrolithiasis, mood disorder, anxiety state, recurrent depression comes because of chest pain going on for last 2 weeks and has dyspnea on exertion starting today and found to have acute PE. Patient states since last 2 weeks she is having chest pains more with inhalation on the right side but today walking short distance made her short of breath which prompted her come to the hospital. Denies any fevers. No cough. She had some dizziness. No headache. Vision is okay. No runny nose or sore throat. No nausea. No a bdominal pain. Normal bowel and bladder movements. Hemodynamics are okay. Patient states She had control vaginal ring placed about 3 months ago. No history of blood clots in the past. No family history of blood clots as per patient. Denies smoking. Denies leg swelling past medical history. As mentioned above past surgical history. Carpal tunnel surgery. Dental surgery. Social history.No smoking. No alcohol use. No drug use. family history. Mother has thyroid disorder. Maternal grandmother had lung cancer. Dementia. Admission Exam Per Admitting Provider Physical Exam: General- Not in distress. Head- atraumatic Eyes- PERRL. ENT- oropharynx clear Neck- supple, no JVD. Lungs- clear to auscultation no wheezing or crackles. Heart- regular rate and rhythm; no murmur, no gallop. Abdomen- normal bowel sounds, soft, nontender, no distension. Extremities- no pretibial edema, no erythema seen Neuro- alert, oriented PERRL, no facial palsy; no dysarthria; Principal Diagnosis Acute pulmonary embolism likely secondary to use of contraceptives, no evidence of DVT Discharge Exam Lying in bed comfortably Constitutional well developed, well nourished and + ill appearing Eyes PERRL, conjunctivae normal, anicteric sclerae ENMT external ear and nose normal, oropharynx normal Neck trachea midline, no thyromegaly Respiratory no respiratory distress Auscultation: + crackles; + lungs not clear to auscultation Cardiovascular Rate/Rhythm: regular rate and regular rhythm; not tachycardic Heart Sounds: normal S1 and normal S2; no murmur Extremities: no edema Gastrointestinal (Abdomen) Inspection/Auscultation: normal bowel sounds; abdomen not distended Percussion/Palpation: abdomen soft; abdomen nontender Neurologic normal touch/pain/proprioception and moves all extremities; no focal motor defi cits Psychiatric A+Ox3, euthymic affect Lymphatic no cervical or axillary lymphadenopathy Discharge Data Allergies Allergy/AdvReac Type Severity Reaction Status Date / Time No Known Allergies Allergy Unverified 08/31/23 19:37 Consultations 08/31/23 21:57 ED Decision to Admit Stat Ordered Studies 08/31/23 20:39 CT angio chest PE protocol Stat 09/01/23 01:16 US venous doppler LE Routine Hospital Course (1) Pulmonary emboli: 27-year-old female with past medical history significant for hepatic steatosis, history of nephrolithiasis, mood disorder, anxiety state, recurrent depression comes because of chest pain going on for last 2 weeks and has dyspnea on exertion starting today and found to have acute PE. Patient states since last 2 weeks she is having chest pains more with inhalation on the right side but today walking short distance made her short of breath which prompted her come to the hospital. Denies any fevers. No cough. She had some dizziness. No headache. Vision is okay. No runny nose or sore throat. No nausea. No abdominal pain. Normal bowel and bladder movements. Hemodynamics are okay. Patient states She had control vaginal ring placed about 3 months ago. No history of blood clots in the past. No family history of blood clots as per patient. Denies smoking. Denies leg swelling Multiple pulmonary emboli Right lower lobar pulm emboli and additional emboli in subsegmental branch of the remaining lungs with 2 peripheral pulmonary infarcts in the right lower lobe and likely reactive pleural effusion on the CAT scan Possible cause control vaginal ring On IV heparin Ultrasound of the legs have been negative for any DVTs Hypercoagulable workup as outpatient Clinically little better Discussed about oral anticoagulation Prefers to have Eliquis versus Xarelto Will start the medication from tomorrow Echo did not show any RV strain Advised to discontinue current contraceptive method She was started with oral Eliquis and she will be discharged home this afternoon She will need to see an logistics manager as an outpatient and probably will need hypercoagulable workup as an outpatient History of mood disorder anxiety recurrent depression continue home meds DVT prophylaxis IV heparin disposition med/telemetry full code Will be discharged home this afternoon Total Time Total Time Spent Total Time Spent (In Minutes): 35 minutes Discharge Plan Discharge Items Patient Disposition: Home - Self-Care Reason For Visit: SOB, ACUTE PE Discharge Diagnosis: Acute pulmonary embolism likely secondary to use of contraceptives, no evidence of DVT Condition on Discharge: Fair Activity: Resume your previous activity Non-emergency contact: Primary Care Provider Call non-emergency contact if: you have any medication questions and your symptoms worsen Follow-up/Referrals: Cassandra Sinclair MD [Primary Care Provider] - Diet: Regular Addtl Attending Provider Instructions: Please take precautions to avoid falls Take your medications-specially Eliquis regularly You need to see a logistics manager as an outpatient for further workup on your coagulation status Please keep appointment with the healthcare providers Pending Studies at Discharge: No Stand-Alone Forms: My [employer], Smoking Cessation Medications and DC Order Prescriptions: New Eliquis 5 mg (74 tabs) tablets,dose pack 5 mg PO BID Qty: 74 0RF Rx Instructions: 10 mg bid for 7 days and then 5 mg BID Continued prednisone 10 mg tablet 10 mg PO UD fluoxetine 20 mg capsule 20 mg PO QAM quetiapine 50 mg tablet 50 mg PO HS Discontinued etonogestrel-ethinyl estradiol 0.12-0.015 mg/24 hr ring 1 vag ring VAGINAL UD Discharge Orders: Discharge Order (Routine); Ordered 09/02/23 Ordered By: Maurilio Perez Admission Data Admit Date/Time: 08/31/23 23:53 Attending Provider: Maurilio Perez Admit Provider: Shlomo Alba Primary Care Provider: Cassandra Sinclair Other Providers: Shlomo Alba Other Interventions: Discharge Summary Assessment (RN) Last Done: 09/02/23 12:00
== END 2023-09-02 14:00 | disposition home or self-care (01) | DRG 176 ==
LOC: ED 18:43 → EDINP 23:53 → 2N 09-01 01:17